=== PATIENT | female | born 1990 | race Caucasian/White ===

== ENCOUNTER → 2021-06-22 | Outpatient (CLI) | payer MEDICAID ==
[2021-06-22 11:05] LABS: HCT 40.3 % (37.2-46.3); HGB 13.1 g/dL (12.0-15.0); MCH 31.4 pg (27.0-32.0); MCHC 32.5 g/dL (32.0-37.0); MCV 96.6 fL (80.0-97.0); Mean Platelet Volume 10.8 fL (9.5-12.2); Platelet Count 235 X 10*3/uL (140-440); RBC 4.17 X 10*6/uL (4.10-5.20); RDW 11.9 % (11.5-14.5); WBC 6.52 X 10*3/uL (4.50-10.00)
[2021-06-22 22:13] LABS: African American GFR (CKD) 113.1 (60.0-200.0); Albumin 4.8 g/dL (3.80-4.90); Albumin/Globulin Ratio 1.92 (1.60-3.17); Anion Gap 11.5 mmol/L (4.00-12.00); BUN/Creat Ratio 18.75 Ratio (12.00-20.00); Calcium 9.4 mg/dL (8.7-10.3); Carbon Dioxide 25.5 mmol/L (21.6-31.8); Globulin 2.5 g/dL (1.6-3.3); Magnesium 1.8 mg/dL (1.5-2.4); Non-African American GFR(CKD) 97.6 (60.0-200.0); Potassium 4.1 mmol/L (3.5-5.5); Total Bilirubin 0.6 mg/dL (0.3-1.2); Total Protein 7.3 g/dL (6.2-8.2)
== END | disposition home or self-care (01) ==
LOC: LABWHC1 07:17
PROVIDERS: ATTEND Internal Medicine
DX: I47.1 Supraventricular tachycardia (principal); R55 Syncope and collapse
CPT/HCPCS: 36415; 80053; 82024; 82533; 83735; 84443; 85027

== ENCOUNTER → 2021-08-28 | Outpatient (CLI) | payer MEDICAID ==
--- NOTE | 2021-09-06 09:59 | HM ---
20 for a Holter monitor shows sinus rhythm and sinus tachycardia Occasional PACs Heart rates range from 41-115 beats a minute, average 69 beats a minute No sustained or nonsustained arrhythmias MTDD
== END | disposition home or self-care (01) ==
LOC: RADECHMAIN 08:17
PROVIDERS: ATTEND Internal Medicine Interventional Cardiology
DX: I49.1 Atrial premature depolarization (principal); R00.0 Tachycardia, unspecified
CPT/HCPCS: 93225; 93226

== ENCOUNTER 2022-03-06 23:24 | Emergency (ER) | payer MEDICAID ==
[2022-03-06 23:44] VITALS: TEMP 98
[2022-03-07 01:48] VITALS: RESP 18
[2022-03-07] MEDS ORDERED: SODIUM CHLORIDE 0.9% 1,000 ML IV STA (02:15)
[2022-03-07] MEDS ORDERED: ONDANSETRON 4 MG/2 ML VIAL IVP STA (02:15)
[2022-03-07 02:38] LABS: Basophils # (A) 0.1 k/uL (0-0.2); Basophils % (A) 1 %; Eosinophils # (A) 0.1 k/uL (0-0.7); Eosinophils % (A) 1 %; HCT 50.3 % (34.0-46.0); HGB 16.7 gm/dL (11.4-16.0); Lymphocytes # (A) 1.9 k/uL (1.0-4.8); Lymphocytes % (A) 20 %; MCH 30.6 pg (25.0-35.0); MCHC 33.2 g/dL (31.0-37.0); Mean Platelet Volume 7.9; Monocytes # (A) 0.6 k/uL (0-1.0); Monocytes % (A) 7 %; Neutrophils # (A) 6.7 k/uL (1.3-7.7); Neutrophils % (A) 70 %; Platelet Count 305 k/uL (150-450); RBC 5.46 m/uL (3.80-5.40); RDW 11.8 % (11.5-15.5); WBC 9.6 k/uL (3.8-10.6)
--- NOTE | 2022-03-07 02:42 | ED ---
Nausea/Vomiting/Diarrhea HPI - General Chief complaint: Nausea/Vomiting/Diarrhea Stated complaint: nausea, vomiting Time Seen by Provider: 03/07/22 01:58 Source: patient Mode of arrival: ambulatory Limitations: no limitations - History of Present Illness MD complaint: nausea, vomiting, diarrhea Onset/Timin -: days(s) Description of Vomiting: watery Description of Diarrhea: water Associated Abdominal Pain: Yes Location: RUQ Radiation: none Severity: mild Quality: dull Consistency: intermittent Improves with: none Worsens with: none Associated Symptoms: nausea/vomiting - Related Data Previous Rx's Medication Instructions Recorded Ondansetron Odt [Zofran ODT] 4 mg PO Q8HR PRN #10 tab 03/07/22 Allergies Allergy/AdvReac Type Severity Reaction Status Date / Time aspirin Allergy Intermediate Wheezing Verified 05/25/21 09:52 prochlorperazine edisylate Allergy Intermediate Unknown Verified 05/25/21 09:52 [From Compazine] prochlorperazine maleate Allergy Intermediate Unknown Verified 05/25/21 09:52 [From Compazine] paroxetine [From Paxil] Allergy Nausea & Verified 05/25/21 09:52 Vomiting Review of Systems ROS Statement: Those systems with pertinent positive or pertinent negative responses have been documented in the HPI. ROS Other: All systems not noted in ROS Statement are negative. Constitutional: Denies: fever, chills Respiratory: Denies: cough, dyspnea Cardiovascular: Denies: chest pain, palpitations, edema Gastrointestinal: Reports: abdominal pain, nausea, vomiting, diarrhea. Denies: constipation, hematemesis, melena, hematochezia Genitourinary: Denies: dysuria, frequency, hematuria, discharge Musculoskeletal: Denies: back pain Skin: Denies: rash Neurological: Denies: headache, weakness, numbness Past Medical History Past Medical History: Asthma Additional Past Medical History / Comment(s): asthma as a child, SVT History of Any Multi-Drug Resistant Organisms: None Reported Past Surgical History: Appendectomy Additional Past Surgical History / Comment(s): d & c Past Anesthesia/Blood Transfusion Reactions: Previous Problems w/ Anesthesia Additional Past Anesthesia/Blood Transfusion Reaction / Comment(s): slow to wake up Past Psychological History: No Psychological Hx Reported Smoking Status: Never smoker Past Alcohol Use History: Rare Past Drug Use History: None Reported - Past Family History Mother Family Medical History: No Reported History General Exam Limitations: no limitations General appearance: alert, in no apparent distress Head exam: Present: atraumatic, normocephalic Eye exam: Present: normal appearance. Absent: scleral icterus, conjunctival injection ENT exam: Present: normal oropharynx Neck exam: Present: normal inspection Respiratory exam: Present: normal lung sounds bilaterally. Absent: respiratory distress, wheezes, rales, rhonchi, stridor Cardiovascular Exam: Present: regular rate, normal rhythm, normal heart sounds. Absent: systolic murmur, diastolic murmur, rubs, gallop GI/Abdominal exam: Present: soft. Absent: distended, tenderness, guarding, rebound, rigid, mass, pulsatile mass, hernia Extremities exam: Present: normal inspection, normal capillary refill. Absent: pedal edema, calf tenderness Back exam: Present: normal inspection Neurological exam: Present: alert Skin exam: Present: warm, dry, intact, normal color. Absent: rash Course Vital Signs 03/06/22 03/07/22 03/07/22 23:40 01:45 02:35 Temperature 98 F Pulse Rate 102 H 89 83 Respiratory 16 18 18 Rate Blood Pressure 118/79 115/72 105/71 O2 Sat by Pulse 98 100 97 Oximetry Medical Decision Making - Lab Data Result diagrams: 03/07/22 02:25 03/07/22 02:25 Lab Results 03/07/22 03/07/22 03/07/22 Range/Units 02:25 02:25 02:37 WBC 9.6 (3.8-10.6) k/uL RBC 5.46 H (3.80-5.40) m/uL Hgb 16.7 H (11.4-16.0) gm/dL Hct 50.3 H (34.0-46.0) % MCV 92.0 (80.0-100.0) fL MCH 30.6 (25.0-35.0) pg MCHC 33.2 (31.0-37.0) g/dL RDW 11.8 (11.5-15.5) % Plt Count 305 (150-450) k/uL MPV 7.9 Neutrophils % 70 % Lymphocytes % 20 % Monocytes % 7 % Eosinophils % 1 % Basophils % 1 % Neutrophils # 6.7 (1.3-7.7) k/uL Lymphocytes # 1.9 (1.0-4.8) k/uL Monocytes # 0.6 (0-1.0) k/uL Eosinophils # 0.1 (0-0.7) k/uL Basophils # 0.1 (0-0.2) k/uL Sodium 137 (137-145) mmol/L Potassium 3.3 L (3.5-5.1) mmol/L Chloride 101 (98-107) mmol/L Carbon Dioxide 24 (22-30) mmol/L Anion Gap 12 mmol/L BUN 15 (7-17) mg/dL Creatinine 0.87 (0.52-1.04) mg/dL Est GFR (CKD-EPI)AfAm >90 (>60 ml/min/1.73 sqM) Est GFR (CKD-EPI)NonAf 89 (>60 ml/min/1.73 sqM) Glucose 109 H (74-99) mg/dL Calcium 10.1 (8.4-10.2) mg/dL Total Bilirubin 0.5 (0.2-1.3) mg/dL AST 42 H (14-36) U/L ALT 31 (4-34) U/L Alkaline Phosphatase 85 (38-126) U/L Total Protein 8.8 H (6.3-8.2) g/dL Albumin 5.2 H (3.5-5.0) g/dL Amylase 97 (30-110) U/L Lipase 129 (23-300) U/L Urine Color Light Red Urine Appearance Cloudy H (Clear) Urine pH 6.0 (5.0-8.0) Ur Specific [place] 1.023 (1.001-1.035) Urine Protein 2+ H (Negative) Urine Glucose (UA) Negative (Negative) Urine Ketones Trace H (Negative) Urine Blood Large H (Negative) Urine Nitrite Negative (Negative) Urine Bilirubin Negative (Negative) Urine Urobilinogen <2.0 (<2.0) mg/dL Ur Leukocyte Esterase Small H (Negative) Urine RBC >182 H (0-5) /hpf Urine WBC 22 H (0-5) /hpf Ur Squamous Epith Cells 7 H (0-4) /hpf Urine Bacteria Rare H (None) /hpf Hyaline Casts 18 H (0-2) /lpf Urine Mucus Many H (None) /hpf Disposition Clinical Impression: Gastroenteritis Disposition: HOME SELF-CARE Condition: Good Instructions (If sedation given, give patient instructions): Acute Nausea and Vomiting (ED) Prescriptions: Ondansetron Odt [Zofran ODT] 4 mg PO Q8HR PRN #10 tab PRN Reason: Nausea Is patient prescribed a controlled substance at d/c from ED?: No Referrals: Naresh Fontana MD [Primary Care Provider] - 1-2 days
[2022-03-07 02:47] LABS: ALT 31 U/L (4-34); AST 42 U/L (14-36); African American GFR (CKD) >90 (>60 ml/min/1.73 sqM); Albumin 5.2 g/dL (3.5-5.0); Alkaline Phosphatase 85 U/L (38-126); Amylase 97 U/L (30-110); Anion Gap 12 mmol/L; Blood Urea Nitrogen 15 mg/dL (7-17); Calcium 10.1 mg/dL (8.4-10.2); Carbon Dioxide 24 mmol/L (22-30); Chloride 101 mmol/L (98-107); Glucose 109 mg/dL (74-99); Lipase 129 U/L (23-300); Non-African American GFR(CKD) 89 (>60 ml/min/1.73 sqM); Potassium 3.3 mmol/L (3.5-5.1); Sodium 137 mmol/L (137-145); Total Bilirubin 0.5 mg/dL (0.2-1.3); Total Protein 8.8 g/dL (6.3-8.2)
[2022-03-07 03:36] LABS: Appearance,Urine Cloudy (Clear); Bacteria,Urine Rare /hpf; Bilirubin,Urine Negative (Negative); Blood,Urine Large (Negative); Color,Urine Light Red; Glucose,Urine (UA) Negative (Negative); Hyaline Casts,Urine 18 /lpf (0-2); Ketones,Urine Trace (Negative); Leukocyte Esterase,Urine Small (Negative); Mucus,Urine Many /hpf; Nitrite,Urine Negative (Negative); Protein,Urine 2+ (Negative); RBC,Urine >182 /hpf (0-5); Specific Gravity,Urine 1.023 (1.001-1.035); Squamous Epithelial Cell,Urine 7 /hpf (0-4); Urobilinogen,Urine <2.0 mg/dL (<2.0); WBC,Urine 22 /hpf (0-5)
[2022-03-07 05:14] VITALS: BP 111/62; PULSE 78
== END 2022-03-07 05:14 | disposition home or self-care (01) ==
LOC: EC 23:24
DX: K52.9 Noninfective gastroenteritis and colitis, unspecified (principal)
CPT/HCPCS: 36415; 80053; 82150; 83690; 85025; 81001; 99284; 96374; 96361; J2405

== ENCOUNTER 2022-03-11 12:55 | Inpatient (IN) | payer MEDICAID ==
[2022-03-11] MEDS ORDERED: KETOROLAC 15 MG/ML 1 ML VIAL IVP STA (13:38)
--- NOTE | 2022-03-11 13:45 | ED ---
General Adult HPI - General Chief complaint: Back Pain/Injury Stated complaint: Abd pain Time Seen by Provider: 03/11/22 13:18 Source: patient, RN notes reviewed Mode of arrival: wheelchair Limitations: no limitations - History of Present Illness Initial comments: Patient is a 31-year-old female presents to the emergency room with complaints of severe right flank pain radiating towards the right abdomen. She states that she was seen in the emergency room a few days ago with complaints of nausea and vomiting was diagnosed with gastroenteritis and discharged. At that time she had it urine specimen that showed possible UTI however she was on her menses consequently she was not treated for UTI at that time. Since discharge from the emergency room she has attempted to contact her primary care provider but due to the weekend she presented to the to urgent care with complaints of dysuria and frequency. Urgent care started her on Keflex. She states that initially her symptoms improved slightly in regards to her dysuria and frequency. Over the last 24-48 hours she has had an increase in flank pain. She denies any previous severe UTIs or history of nephrolithiasis. She states that she is occasionally nauseated from pain but denies any vomiting or other GI symptoms. She is complaining of occasional dysuria and frequency but denies any hematuria. She has past medical history significant for asthma. She has a history of an appendectomy from appendicitis many years ago. She denies any other complaints or concerns this time. - Related Data Previous Rx's Medication Instructions Recorded Ondansetron Odt [Zofran ODT] 4 mg PO Q8HR PRN #10 tab 03/07/22 Allergies Allergy/AdvReac Type Severity Reaction Status Date / Time aspirin Allergy Intermediate Wheezing Verified 03/11/22 13:06 prochlorperazine edisylate Allergy Intermediate Unknown Verified 03/11/22 13:06 [From Compazine] prochlorperazine maleate Allergy Intermediate Unknown Verified 03/11/22 13:06 [From Compazine] paroxetine [From Paxil] Allergy Nausea & Verified 03/11/22 13:06 Vomiting Review of Systems ROS Statement: Those systems with pertinent positive or pertinent negative responses have been documented in the HPI. ROS Other: All systems not noted in ROS Statement are negative. Past Medical History Past Medical History: Asthma Additional Past Medical History / Comment(s): asthma as a child, SVT History of Any Multi-Drug Resistant Organisms: None Reported Past Surgical History: Appendectomy Additional Past Surgical History / Comment(s): d & c Past Anesthesia/Blood Transfusion Reactions: Previous Problems w/ Anesthesia Additional Past Anesthesia/Blood Transfusion Reaction / Comment(s): slow to wake up Past Psychological History: No Psychological Hx Reported Smoking Status: Never smoker Past Alcohol Use History: Rare Past Drug Use History: None Reported - Past Family History Mother Family Medical History: No Reported History General Exam Limitations: no limitations General appearance: alert, in no apparent distress, other (in pain) Head exam: Present: atraumatic, normocephalic, normal inspection Eye exam: Present: normal appearance, PERRL, EOMI. Absent: scleral icterus, conjunctival injection, periorbital swelling Respiratory exam: Present: normal lung sounds bilaterally. Absent: respiratory distress, wheezes, rales, rhonchi, stridor Cardiovascular Exam: Present: regular rate, normal rhythm, normal heart sounds. Absent: systolic murmur, diastolic murmur, rubs, gallop, clicks GI/Abdominal exam: Present: soft, normal bowel sounds. Absent: distended, tenderness, guarding, rebound, rigid Extremities exam: Present: normal inspection. Absent: pedal edema, joint swelling Back exam: Present: CVA tenderness (R). Absent: muscle spasm, paraspinal tenderness, vertebral tenderness Neurological exam: Present: alert, oriented X3, CN II-XII intact Psychiatric exam: Present: normal affect, normal mood Skin exam: Present: warm, dry, intact, normal color. Absent: rash Course Vital Signs 03/11/22 03/11/22 13:07 14:32 Temperature 97.8 F Pulse Rate 75 69 Respiratory 16 16 Rate Blood Pressure 150/79 100/48 O2 Sat by Pulse 100 98 Oximetry Medical Decision Making - Medical Decision Making CT abdomen and pelvis without contrast showed obstructing calculi at the right ureterovesical junction with hydronephrosis and hydroureter. Bilateral renal calculi. Pain improved with IV Toradol. IV fluids started. Case discussed with urology and medicine. Urology doubts pyelonephrosis and need for intervention however recommend admission for intractable pain if necessary. Recommend admission to medicine with urology consult. Urinary specimen with significant abnormalities noted. Case discussed with Dr. Flanagan who is covering for Dr. Canela who agrees to admission for intractable pain. Requests IV antibiotics for possible UTI; pyelonephritis unlikely. Will start on ceftriaxone. Will admit to medicine and continue IV fluids along with Toradol for pain. - Lab Data Result diagrams: 03/11/22 13:48 03/11/22 13:48 Lab Results 03/11/22 03/11/22 03/11/22 Range/Units 13:48 13:48 14:32 WBC 12.1 H (3.8-10.6) k/uL RBC 4.16 (3.80-5.40) m/uL Hgb 13.0 D (11.4-16.0) gm/dL Hct 39.1 (34.0-46.0) % MCV 93.8 (80.0-100.0) fL MCH 31.3 (25.0-35.0) pg MCHC 33.4 (31.0-37.0) g/dL RDW 12.5 (11.5-15.5) % Plt Count 363 (150-450) k/uL MPV 9.5 Neutrophils % 66 % Lymphocytes % 26 % Monocytes % 4 % Eosinophils % 1 % Basophils % 1 % Neutrophils # 8.0 H (1.3-7.7) k/uL Lymphocytes # 3.1 (1.0-4.8) k/uL Monocytes # 0.5 (0-1.0) k/uL Eosinophils # 0.1 (0-0.7) k/uL Basophils # 0.1 (0-0.2) k/uL Sodium 138 (137-145) mmol/L Potassium 3.9 (3.5-5.1) mmol/L Chloride 104 (98-107) mmol/L Carbon Dioxide 23 (22-30) mmol/L Anion Gap 11 mmol/L BUN 14 (7-17) mg/dL Creatinine 0.91 (0.52-1.04) mg/dL Est GFR (CKD-EPI)AfAm >90 (>60 ml/min/1.73 sqM) Est GFR (CKD-EPI)NonAf 84 (>60 ml/min/1.73 sqM) Glucose 105 H (74-99) mg/dL Calcium 9.4 (8.4-10.2) mg/dL Total Bilirubin 0.4 (0.2-1.3) mg/dL AST 38 H (14-36) U/L ALT 31 (4-34) U/L Alkaline Phosphatase 79 (38-126) U/L Total Protein 7.1 (6.3-8.2) g/dL Albumin 4.5 (3.5-5.0) g/dL Urine Color Yellow Urine Appearance Clear (Clear) Urine pH 6.0 (5.0-8.0) Ur Specific [place] 1.014 (1.001-1.035) Urine Protein Trace H (Negative) Urine Glucose (UA) Negative (Negative) Urine Ketones 1+ H (Negative) Urine Blood Large H (Negative) Urine Nitrite Negative (Negative) Urine Bilirubin Negative (Negative) Urine Urobilinogen <2.0 (<2.0) mg/dL Ur Leukocyte Esterase Small H (Negative) Urine RBC >182 H (0-5) /hpf Urine WBC 11 H (0-5) /hpf Ur Squamous Epith Cells 2 (0-4) /hpf Calcium Oxalate Crystal Rare H (None) /hpf Urine Bacteria Rare H (None) /hpf Urine Mucus Few H (None) /hpf Urine HCG, Qual (Not Detectd) 03/11/22 Range/Units 14:32 WBC (3.8-10.6) k/uL RBC (3.80-5.40) m/uL Hgb (11.4-16.0) gm/dL Hct (34.0-46.0) % MCV (80.0-100.0) fL MCH (25.0-35.0) pg MCHC (31.0-37.0) g/dL RDW (11.5-15.5) % Plt Count (150-450) k/uL MPV Neutrophils % % Lymphocytes % % Monocytes % % Eosinophils % % Basophils % % Neutrophils # (1.3-7.7) k/uL Lymphocytes # (1.0-4.8) k/uL Monocytes # (0-1.0) k/uL Eosinophils # (0-0.7) k/uL Basophils # (0-0.2) k/uL Sodium (137-145) mmol/L Potassium (3.5-5.1) mmol/L Chloride (98-107) mmol/L Carbon Dioxide (22-30) mmol/L Anion Gap mmol/L BUN (7-17) mg/dL Creatinine (0.52-1.04) mg/dL Est GFR (CKD-EPI)AfAm (>60 ml/min/1.73 sqM) Est GFR (CKD-EPI)NonAf (>60 ml/min/1.73 sqM) Glucose (74-99) mg/dL Calcium (8.4-10.2) mg/dL Total Bilirubin (0.2-1.3) mg/dL AST (14-36) U/L ALT (4-34) U/L Alkaline Phosphatase (38-126) U/L Total Protein (6.3-8.2) g/dL Albumin (3.5-5.0) g/dL Urine Color Urine Appearance (Clear) Urine pH (5.0-8.0) Ur Specific [place] (1.001-1.035) Urine Protein (Negative) Urine Glucose (UA) (Negative) Urine Ketones (Negative) Urine Blood (Negative) Urine Nitrite (Negative) Urine Bilirubin (Negative) Urine Urobilinogen (<2.0) mg/dL Ur Leukocyte Esterase (Negative) Urine RBC (0-5) /hpf Urine WBC (0-5) /hpf Ur Squamous Epith Cells (0-4) /hpf Calcium Oxalate Crystal (None) /hpf Urine Bacteria (None) /hpf Urine Mucus (None) /hpf Urine HCG, Qual Not Detected (Not Detectd) - Radiology Data Radiology results: report reviewed, image reviewed CT abdomen and pelvis without contrast impression obstructing calculi at the right ureterovesical junction with hydronephrosis and hydro-ureter. Bilateral renal calculi. Disposition Clinical Impression: Nephrolithiasis, Intractable pain Disposition: [facility] Condition: Stable Is patient prescribed a controlled substance at d/c from ED?: No Referrals: Naresh Fontana MD [Primary Care Provider] - 1-2 days Time of Disposition: 15:04 Decision to Admit Reason: Admit from EC
[2022-03-11 14:05] LABS: ALT 31 U/L (4-34); AST 38 U/L (14-36); African American GFR (CKD) >90 (>60 ml/min/1.73 sqM); Albumin 4.5 g/dL (3.5-5.0); Alkaline Phosphatase 79 U/L (38-126); Anion Gap 11 mmol/L; Blood Urea Nitrogen 14 mg/dL (7-17); Calcium 9.4 mg/dL (8.4-10.2); Carbon Dioxide 23 mmol/L (22-30); Chloride 104 mmol/L (98-107); Glucose 105 mg/dL (74-99); Non-African American GFR(CKD) 84 (>60 ml/min/1.73 sqM); Potassium 3.9 mmol/L (3.5-5.1); Sodium 138 mmol/L (137-145); Total Bilirubin 0.4 mg/dL (0.2-1.3); Total Protein 7.1 g/dL (6.3-8.2)
[2022-03-11] MEDS ORDERED: SODIUM CHLORIDE 0.9% 1,000 ML IV STA (14:15)
[2022-03-11 14:37] LABS: Basophils # (A) 0.1 k/uL (0-0.2); Basophils % (A) 1 %; Eosinophils # (A) 0.1 k/uL (0-0.7); Eosinophils % (A) 1 %; HCT 39.1 % (34.0-46.0); Lymphocytes # (A) 3.1 k/uL (1.0-4.8); Lymphocytes % (A) 26 %; MCH 31.3 pg (25.0-35.0); MCHC 33.4 g/dL (31.0-37.0); MCV 93.8 fL (80.0-100.0); Mean Platelet Volume 9.5; Monocytes # (A) 0.5 k/uL (0-1.0); Monocytes % (A) 4 %; Neutrophils % (A) 66 %; Platelet Count 363 k/uL (150-450); RBC 4.16 m/uL (3.80-5.40); RDW 12.5 % (11.5-15.5); WBC 12.1 k/uL (3.8-10.6)
--- NOTE | 2022-03-11 14:40 | CT ---
EXAMINATION TYPE: CT abdomen pelvis wo con DATE OF EXAM: 03/11/2022 COMPARISON: None HISTORY: Abdominal pain CT DLP: mGycm Automated exposure control for dose reduction was used. Images obtained from the diaphragm to the floor the pelvis with no contrast. The lung bases are clear. No pleural effusion. Heart size is normal. No pericardial effusion. Liver spleen and stomach pancreas and gallbladder appear intact. The bile ducts are not dilated. There is no adrenal mass. There are bilateral multiple renal calculi. These measure up to 4 mm. There is right side hydronephrosis and hydroureter. There is 4 mm obstructing calculus at the right ureter ovesical junction. There is no inguinal hernia. No free fluid in the pelvis. There is no retroperiton eal adenopathy. Uterus is anteverted. No pelvic mass. The lumbar vertebrae have normal spacing and alignment. Posteri or elements are intact. No compression fracture. The bony pelvis is intact. Sacroiliac joints are int act. There are surgical clips in the right lower quadrant. Appendix not seen. IMPRESSION: Obstructing calculus at the right ureterovesical junction with hydronephrosis and hydroureter. Bilate ral renal calculi.
[2022-03-11 14:56] LABS: Appearance,Urine Clear (Clear); Bacteria,Urine Rare /hpf; Bilirubin,Urine Negative (Negative); Blood,Urine Large (Negative); Calcium Oxalate Crystals,Urine Rare /hpf; Color,Urine Yellow; Glucose,Urine (UA) Negative (Negative); Ketones,Urine 1+ (Negative); Leukocyte Esterase,Urine Small (Negative); Mucus,Urine Few /hpf; Nitrite,Urine Negative (Negative); Protein,Urine Trace (Negative); RBC,Urine >182 /hpf (0-5); Specific Gravity,Urine 1.014 (1.001-1.035); Squamous Epithelial Cell,Urine 2 /hpf (0-4); Urobilinogen,Urine <2.0 mg/dL (<2.0); WBC,Urine 11 /hpf (0-5)
[2022-03-11] MEDS ORDERED: ACETAMINOPHEN TAB 325 MG TAB PO PRN (15:09)
[2022-03-11] MEDS ORDERED: NALOXONE 0.4 MG/ML 1 ML VIAL IV PRN (15:09)
[2022-03-11] MEDS: ONDANSETRON 4 MG/2 ML VIAL IVP PRN (17:01)
[2022-03-11] MEDS: IBUPROFEN 400 MG TAB PO PRN ×2 (17:01→23:11)
[2022-03-11] MEDS: SODIUM CHLORIDE 0.9% 1,000 ML IV SCH ×2 (17:03→23:01)
[2022-03-11] MEDS ORDERED: HYDROmorphone 0.5 MG/0.5 ML SYRINGE IVP PRN (18:53)
--- NOTE | 2022-03-11 20:30 | P.HPIM ---
History of Present Illness H&P Date: 03/11/22 Chief Complaint: RT flank pain Patient is a 31-year-old female with a known history of asthma, SVT and no prior history of renal stones presents to ER with the complaints of right lower back pain. Patient states that she had severe sharp pain noted when she was at home currently and radiating down to the groin. Patient was seen in the emergency room few days ago with complaints of nausea vomiting and was diagnosed with gastroenteritis. Patient was sent home. At time urinalysis showed possible UTI. Mainly red blood cells. Patient was on her menses at the time and consequently patient was discharged home. Patient went to urgent care with similar complaints of dysuria and frequency. Patient was started on Keflex which she took 4 doses so far. Initially her symptoms improved but over the past 24 hours she has been having right flank discomfort and pain. Denies any vomiting currently. Slightly nauseated. No headache or dizziness. No fever no chills. No chest pain or shortness of breath. CT of the abdomen pelvis showed obstructing calculus at the right ureterovesical junction with hydronephrosis and hydroureter. Bilateral renal calculi. Laboratory data showed WBC 12.1 hemoglobin 13.0 and platelets 363 AST 38 ALT 31 alk phos 79. Urinalysis showed trace protein 1+ ketones and large blood and small leukocyte esterase elevated RBCs and WBCs. Review of Systems Constitutional: Patient denies any fever or chills . Generalized weakness. Abdomen: Patient denied any nausea or vomiting or abd. pain. Patient does complain of e right flank pain Cardiovascular: Patient denies any chest pain or short of breath no palpitation s. Respiratory: patient denied any cough is from production. No shortness of breath Neurologic: Patient denied any numbness or tingling headache. Musculoskeletal: Patient denies any complaints of joint swelling or deformity. Skin: Negative Psychiatric: Negative Endocrine: No heat or cold intolerance. No recent weight gain. Genitourinary: dysuria . no hematuria. All other 14 point ROS negative except the above Past Medical History Past Medical History: Asthma Additional Past Medical History / Comment(s): asthma as a child, SVT History of Any Multi-Drug Resistant Organisms: None Reported Past Surgical History: Appendectomy Additional Past Surgical History / Comment(s): d & c Past Anesthesia/Blood Transfusion Reactions: Previous Problems w/ Anesthesia Additional Past Anesthesia/Blood Transfusion Reaction / Comment(s): slow to wake up Past Psychological History: No Psychological Hx Reported Smoking Status: Never smoker Past Alcohol Use History: Rare Past Drug Use History: None Reported - Past Family History Mother Family Medical History: No Reported History Medications and Allergies Home Medications Medication Instructions Recorded Confirmed Type Ondansetron Odt [Zofran ODT] 4 mg PO Q8HR PRN #10 tab 03/07/22 Rx Allergies Allergy/AdvReac Type Severity Reaction Status Date / Time aspirin Allergy Intermediate Wheezing Verified 03/11/22 13:06 prochlorperazine edisylate Allergy Intermediate Unknown Verified 03/11/22 13:06 [From Compazine] prochlorperazine maleate Allergy Intermediate Unknown Verified 03/11/22 13:06 [From Compazine] paroxetine [From Paxil] Allergy Nausea & Verified 03/11/22 13:06 Vomiting Physical Exam Vitals: Vital Signs Temp Pulse Pulse Resp BP BP Pulse Ox 03/11/22 16:52 99.0 F 60 16 106/68 100 03/11/22 15:58 98.0 F 71 16 111/57 98 03/11/22 14:32 69 16 100/48 98 03/11/22 13:07 97.8 F 75 16 150/79 100 Intake and Output 03/11/22 03/11/22 03/11/22 06:59 14:59 22:59 Intake Total 540 Balance 540 Intake: Intake, IV Titration 300 Amount cefTRIAXone 1 gm In 300 Sodium Chloride 0.9% 50 ml @ 100 mls/hr IVPB ONCE STA Rx#:[id number] Oral 240 Other: # Voids 3 Weight 62.596 kg 62.596 kg PHYSICAL EXAMINATION: Patient is lying in the bed comfortably, no acute distress, awake alert and oriented.. HEENT: Normocephalic. Neck is supple. Pupils reactive. Nostrils clear. Oral cavity is moist. Neck reveals no JVD, carotid bruits, or thyromegaly. CHEST EXAMINATION: Trachea is central. Symmetrical expansion. Lung parikh clear to auscultation and percussion. CARDIAC: Normal S1, S2 with no gallops. No murmurs ABDOMEN: Soft. Bowel sounds present. Nontender. No organomegaly. No abdominal bruits. Extremities: reveal no edema. No clubbing or cyanosis Neurologically awake, alert, oriented x3 with well-coordinated movements. No focal deficits noted Skin: No rash or skin lesions. Psychiatric: Coperative. Nonsuicidal, anxious. Musculoskeletal: No joint swelling or deformity. Normal range of motion. Results CBC & Chem 7: 03/11/22 13:48 03/11/22 13:48 Labs: Abnormal Lab Results - Last 24 Hours (Table) 03/11/22 03/11/22 03/11/22 Range/Units 13:48 13:48 14:32 WBC 12.1 H (3.8-10.6) k/uL Neutrophils # 8.0 H (1.3-7.7) k/uL Glucose 105 H (74-99) mg/dL AST 38 H (14-36) U/L Urine Protein Trace H (Negative) Urine Ketones 1+ H (Negative) Urine Blood Large H (Negative) Ur Leukocyte Esterase Small H (Negative) Urine RBC >182 H (0-5) /hpf Urine WBC 11 H (0-5) /hpf Calcium Oxalate Crystal Rare H (None) /hpf Urine Bacteria Rare H (None) /hpf Urine Mucus Few H (None) /hpf Thrombosis Risk Factor Assmnt - DVT/VTE Prophylaxis DVT/VTE Prophylaxis: Pharmacologic Prophylaxis ordered - Choose All That Apply Any of the Below Risk Factors Present?: No Assessment and Plan Assessment: Right flank tenderness due to obstructing calculus at the right ureterovesicular junction. Hydroureters and hydro nephrosis secondary more Bilateral renal calculi Possible urinary tract infection Asthma not in exacerbation DVT prophylaxis with heparin subcu Plan: Patient will be continued on IV hydration and pain management Toradol and Dilaudid. Continue with antibiotics in the form of ceftriaxone and follow-up urine culture report. Urology was consulted. Continue to follow closely. Time with Patient: Greater than 30
[2022-03-11] MEDS: HEPARIN SODIUM,PORCINE/PF 5,000 UNIT/0.5 ML SYRINGE SQ SCH (23:11)
[2022-03-12] MEDS: HEPARIN SODIUM,PORCINE/PF 5,000 UNIT/0.5 ML SYRINGE SQ SCH ×2 (08:35→16:13)
[2022-03-12] MEDS: KETOROLAC 15 MG/ML 1 ML VIAL IVP PRN ×3 (08:41→20:57)
[2022-03-12 08:59] LABS: Basophils # (A) 0.04 X 10*3/uL (0.00-0.10); Basophils % (A) 0.6 %; Eosinophils # (A) 0.14 X 10*3/uL (0.04-0.35); Eosinophils % (A) 2.1 %; HCT 35.3 % (37.2-46.3); HGB 11.4 g/dL (12.0-15.0); Immature Grans, Automated 0.4 %; Lymphocytes # (A) 2.59 X 10*3/uL (0.90-5.00); Lymphocytes % (A) 38.4 %; MCH 30.5 pg (27.0-32.0); MCHC 32.3 g/dL (32.0-37.0); MCV 94.4 fL (80.0-97.0); Mean Platelet Volume 11.2 fL (9.5-12.2); Monocytes # (A) 0.58 X 10*3/uL (0.20-1.00); Monocytes % (A) 8.6 %; NRBC Per 100 WBC 0 /100 WBCS (0.0-0.0); Neutrophils # (A) 3.37 X 10*3/uL (1.80-7.70); Neutrophils % (A) 49.9 %; Platelet Count 263 X 10*3/uL (140-440); RBC 3.74 X 10*6/uL (4.10-5.20); RDW 12.1 % (11.5-14.5); WBC 6.75 X 10*3/uL (4.50-10.00)
[2022-03-12 09:07] LABS: African American GFR (CKD) 132.9 (60.0-200.0); Anion Gap 7.7 mmol/L (10.00-18.00); BUN/Creat Ratio 14.57 Ratio (12.00-20.00); Blood Urea Nitrogen 10.2 mg/dL (9.0-27.0); Calcium 8.9 mg/dL (8.7-10.3); Carbon Dioxide 28.3 mmol/L (20.0-27.5); Non-African American GFR(CKD) 114.6 (60.0-200.0); Potassium 3.9 mmol/L (3.5-5.5)
[2022-03-12] MEDS: TAMSULOSIN 0.4 MG CAP.ER.24H PO SCH (09:52)
--- NOTE | 2022-03-12 09:53 | P.GSCN ---
History of Present Illness Consult date: 03/12/22 Reason for Consult: Right ureteral stone History of present illness: This is a 31-year-old female admitted to the hospital with a 4 mm right-sided distal stone. Patient was admitted to intractable pain. She underwent a CT on presentation that showed evidence of a 4 mm right-sided distal stone with bilateral nonobstructing stones. No previous history of kidney stones or family history kidney stones. She indicated the pain is in the right flank and radiating to the right lower quadrant, associated with nausea with no vomiting. Denies any fevers or chills or dysuria. This morning on evaluation she indicated her pain has improved, she has not seen the stone pass Review of Systems - Constitutional Denies fever, Denies weight loss - Cardiovascular Denies chest pain, Denies shortness of breath - Respiratory Denies cough, Denies 7 - Gastrointestinal Reports abdominal pain - Genitourinary Genitourinary: Reports flank pain, Denies dysuria, Denies hematuria - Neurological Denies headaches, Denies syncope Past Medical History Past Medical History: Asthma Additional Past Medical History / Comment(s): asthma as a child, SVT History of Any Multi-Drug Resistant Organisms: None Reported Past Surgical History: Appendectomy Additional Past Surgical History / Comment(s): d & c Past Anesthesia/Blood Transfusion Reactions: Previous Problems w/ Anesthesia Additional Past Anesthesia/Blood Transfusion Reaction / Comm: slow to wake up Past Psychological History: No Psychological Hx Reported Smoking Status: Never smoker Past Alcohol Use History: Rare Past Drug Use History: None Reported - Past Family History Mother Family Medical History: No Reported History Medications and Allergies Home Medications Medication Instructions Recorded Confirmed Type Ondansetron Odt [Zofran ODT] 4 mg PO Q8HR PRN #10 tab 03/07/22 03/12/22 Rx Cephalexin [Keflex] 500 mg PO QID 03/12/22 03/12/22 History Metoprolol Tartrate [Lopressor] 6.25 - 12.5 mg PO DAILY 03/12/22 03/12/22 History Metoprolol Tartrate [Lopressor] 12.5 mg PO HS PRN 03/12/22 03/12/22 History Allergies Allergy/AdvReac Type Severity Reaction Status Date / Time aspirin Allergy Intermediate Wheezing Verified 03/12/22 08:04 prochlorperazine edisylate Allergy Intermediate Unknown Verified 03/12/22 08:04 [From Compazine] prochlorperazine maleate Allergy Intermediate Unknown Verified 03/12/22 08:04 [From Compazine] paroxetine [From Paxil] Allergy Nausea & Verified 03/12/22 08:04 Vomiting Surgical - Exam Vital Signs Temp Pulse Resp BP Pulse Ox 97.8 F 75 16 150/79 100 03/11/22 13:07 03/11/22 13:07 03/11/22 13:07 03/11/22 13:07 03/11/22 13:07 - General no distress, moderate pain - Eyes normal ocular movement, no pale - ENT normal nares, normal mucosa - Respiratory normal expansion, normal respiratory effort - Abdomen Abdomen: soft, non tender - Psychiatric oriented to time, oriented to person, oriented to place Results - Labs 03/12/22 05:48 03/12/22 05:48 Abnormal Lab Results - Last 24 Hours (Table) 03/11/22 03/11/22 03/11/22 Range/Units 13:48 13:48 14:32 WBC 12.1 H (3.8-10.6) k/uL RBC (4.10-5.20) X 10*6/uL Hgb (12.0-15.0) g/dL Hct (37.2-46.3) % Neutrophils # 8.0 H (1.3-7.7) k/uL Carbon Dioxide (20.0-27.5) mmol/L Anion Gap (10.00-18.00) mmol/L Glucose 105 H (74-99) mg/dL AST 38 H (14-36) U/L Urine Protein Trace H (Negative) Urine Ketones 1+ H (Negative) Urine Blood Large H (Negative) Ur Leukocyte Esterase Small H (Negative) Urine RBC >182 H (0-5) /hpf Urine WBC 11 H (0-5) /hpf Calcium Oxalate Crystal Rare H (None) /hpf Urine Bacteria Rare H (None) /hpf Urine Mucus Few H (None) /hpf 03/12/22 03/12/22 Range/Units 05:48 05:48 WBC (3.8-10.6) k/uL RBC 3.74 L (4.10-5.20) X 10*6/uL Hgb 11.4 L (12.0-15.0) g/dL Hct 35.3 L (37.2-46.3) % Neutrophils # (1.3-7.7) k/uL Carbon Dioxide 28.3 H (20.0-27.5) mmol/L Anion Gap 7.70 L (10.00-18.00) mmol/L Glucose (74-99) mg/dL AST (14-36) U/L Urine Protein (Negative) Urine Ketones (Negative) Urine Blood (Negative) Ur Leukocyte Esterase (Negative) Urine RBC (0-5) /hpf Urine WBC (0-5) /hpf Calcium Oxalate Crystal (None) /hpf Urine Bacteria (None) /hpf Urine Mucus (None) /hpf Microbiology - Last 24 Hours (Table) 03/11/22 14:32 Urine Culture - Preliminary Urine,Voided Diabetes panel 03/11/22 03/12/22 Range/Units 13:48 05:48 Sodium 138 144 (137-145) mmol/L Potassium 3.9 3.9 (3.5-5.1) mmol/L Chloride 104 108 (98-107) mmol/L Carbon Dioxide 23 28.3 H (22-30) mmol/L BUN 14 10.2 (7-17) mg/dL Creatinine 0.91 0.7 (0.52-1.04) mg/dL Glucose 105 H 90 (74-99) mg/dL Calcium 9.4 8.9 (8.4-10.2) mg/dL AST 38 H (14-36) U/L ALT 31 (4-34) U/L Alkaline Phosphatase 79 (38-126) U/L Total Protein 7.1 (6.3-8.2) g/dL Albumin 4.5 (3.5-5.0) g/dL Calcium panel 03/11/22 03/12/22 Range/Units 13:48 05:48 Calcium 9.4 8.9 (8.4-10.2) mg/dL Albumin 4.5 (3.5-5.0) g/dL Pituitary panel 03/11/22 03/12/22 Range/Units 13:48 05:48 Sodium 138 144 (137-145) mmol/L Potassium 3.9 3.9 (3.5-5.1) mmol/L Chloride 104 108 (98-107) mmol/L Carbon Dioxide 23 28.3 H (22-30) mmol/L BUN 14 10.2 (7-17) mg/dL Creatinine 0.91 0.7 (0.52-1.04) mg/dL Glucose 105 H 90 (74-99) mg/dL Calcium 9.4 8.9 (8.4-10.2) mg/dL Adrenal panel 03/11/22 03/12/22 Range/Units 13:48 05:48 Sodium 138 144 (137-145) mmol/L Potassium 3.9 3.9 (3.5-5.1) mmol/L Chloride 104 108 (98-107) mmol/L Carbon Dioxide 23 28.3 H (22-30) mmol/L BUN 14 10.2 (7-17) mg/dL Creatinine 0.91 0.7 (0.52-1.04) mg/dL Glucose 105 H 90 (74-99) mg/dL Calcium 9.4 8.9 (8.4-10.2) mg/dL Total Bilirubin 0.4 (0.2-1.3) mg/dL AST 38 H (14-36) U/L ALT 31 (4-34) U/L Alkaline Phosphatase 79 (38-126) U/L Total Protein 7.1 (6.3-8.2) g/dL Albumin 4.5 (3.5-5.0) g/dL Assessment and Plan Assessment: 31-year-old female admitted to the hospital with a 4 mm right-sided distal stone secondary to intractable pain. Pain improved this morning. At this point we'll observe her overnight, if pain recurs then we'll plan on proceeding with a right-sided ureteroscopy with holmium laser lithotripsy tomorrow, IF pain is manageable resolves then we'll plan on discharging home tomorrow. -we'll start her on Flomax, strain her urine. -Continue ceftriaxone -Nothing by mouth past midnight
[2022-03-12] MEDS: SODIUM CHLORIDE 0.9% 1,000 ML IV SCH (10:56)
[2022-03-12] MEDS ORDERED: METOPROLOL TARTRATE 12.5 MG TAB PO PRN (19:02)
[2022-03-13] MEDS: HEPARIN SODIUM,PORCINE/PF 5,000 UNIT/0.5 ML SYRINGE SQ SCH ×4 (00:19→23:46)
[2022-03-13] MEDS: KETOROLAC 15 MG/ML 1 ML VIAL IVP PRN ×4 (05:12→23:41)
[2022-03-13] MEDS: ONDANSETRON 4 MG/2 ML VIAL IVP PRN (05:12)
--- NOTE | 2022-03-13 06:20 | P.PN ---
Subjective Progress Note Date: 03/12/22 Patient is a 31-year-old female with a known history of asthma, SVT and no prior history of renal stones presents to ER with the complaints of right lower back pain. Patient states that she had severe sharp pain noted when she was at home currently and radiating down to the groin. Patient was seen in the emergency room few days ago with complaints of nausea vomiting and was diagnosed with gastroenteritis. Patient was sent home. At time urinalysis showed possible UTI. Mainly red blood cells. Patient was on her menses at the time and consequently patient was discharged home. Patient went to urgent care with similar complaints of dysuria and frequency. Patient was started on Keflex which she took 4 doses so far. Initially her symptoms improved but over the past 24 hours she has been having right flank discomfort and pain. Denies any vomiting currently. Slightly nauseated. No headache or dizziness. No fever no chills. No chest pain or shortness of breath. CT of the abdomen pelvis showed obstructing calculus at the right ureterovesical junction with hydronephrosis and hydroureter. Bilateral renal calculi. Laboratory data showed WBC 12.1 hemoglobin 13.0 and platelets 363 AST 38 ALT 31 alk phos 79. Urinalysis showed trace protein 1+ ketones and large blood and small leukocyte e sterase elevated RBCs and WBCs. 03/12/2022 Patient is seen in follow-up this morning continues with some right flank pain and continues to feel a decreased urine output although is urinating. Patient is noticing some blood in the urine and urology following the patient. Patient will be nothing by mouth at midnight and plan is for possible lithotripsy in the a.m. Patient is also maintained on IV antibiotics and will continue. Patient denies chest pain or shortness of breath. Patient currently afebrile. Patient tolerating diet with no reports of nausea or vomiting noted. Patient reports her pain is currently controlled and will continue current regimen. Review of systems: Constitutional: No reports of fatigue, fever, or chills Cardiovascular: No reports of chest pain or palpitations Respiratory: No reports of shortness of breath or cough GI: No reports of nausea, vomiting, or diarrhea : No reports of dysuria or retention Neurovascular: No reports of weakness or numbness All medications have been reviewed Active Medications Acetaminophen (Acetaminophen Tab 325 Mg Tab) 650 mg PO Q6HR PRN PRN Reason: Mild Pain or Fever > 100.5 Heparin Sodium (Porcine) (Heparin Sodium,Porcine/Pf 5,000 Unit/0.5 Ml Syringe) 5,000 unit SQ Q8HR [facility] Last Admin: 03/12/22 08:35 Dose: Not Given Hydromorphone HCl (Hydromorphone 0.5 Mg/0.5 Ml Syringe) 0.5 mg IVP Q6HR PRN PRN Reason: Pain Sodium Chloride (Saline 0.9%) 1,000 mls @ 75 mls/hr IV .[id number] [facility] Last Admin: 03/12/22 10:56 Dose: 75 mls/hr Ceftriaxone Sodium 1 gm/ (Sodium Chloride) 50 mls @ 100 mls/hr IVPB Q24HR [facility]; Protocol Last Admin: 03/12/22 08:40 Dose: 100 mls/hr Ibuprofen (Ibuprofen 400 Mg Tab) 400 mg PO Q6HR PRN PRN Reason: Mild Pain or Fever > 100.5 Last Admin: 03/11/22 23:11 Dose: 400 mg Ketorolac Tromethamine (Ketorolac 15 Mg/Ml 1 Ml Vial) 15 mg IVP Q6HR PRN PRN Reason: Moderate Pain Stop: 03/14/22 15:10 Last Admin: 03/12/22 14:24 Dose: 15 mg Naloxone HCl (Naloxone 0.4 Mg/Ml 1 Ml Vial) 0.2 mg IV Q2M PRN PRN Reason: Opioid Reversal Ondansetron HCl (Ondansetron 4 Mg/2 Ml Vial) 4 mg IVP Q8HR PRN PRN Reason: Nausea And Vomiting Last Admin: 03/11/22 17:01 Dose: 4 mg Tamsulosin HCl (Tamsulosin 0.4 Mg Cap.Er.24h) 0.4 mg PO PC-BRKFST [facility] Last Admin: 03/12/22 09:52 Dose: 0.4 mg Physical exam: Patient is lying in the bed comfortably, no acute distress, awake alert and oriented.. HEENT: Normocephalic. Neck is supple. Pupils reactive. Nostrils clear. Oral cavity is moist. Neck reveals no JVD, carotid bruits, or thyromegaly. CHEST EXAMINATION: Trachea is central. Symmetrical expansion. Lung parikh clear to auscultation and percussion. CARDIAC: Normal S1, S2 with no gallops. No murmurs ABDOMEN: Soft. Bowel sounds present. Nontender. No organomegaly. No abdominal bruits. Extremities: reveal no edema. No clubbing or cyanosis Neurologically awake, alert, oriented x3 with well-coordinated movements. No focal deficits noted Skin: No rash or skin lesions. Psychiatric: Coperative. Nonsuicidal, anxious. Musculoskeletal: No joint swelling or deformity. Normal range of motion. Assessment: Right flank tenderness due to obstructing calculus at the right ureterovesicular junction. Hydroureters and hydronephrosis secondary to above Bilateral renal calculi Possible urinary tract infection, failed outpatient Asthma not in exacerbation DVT prophylaxis with heparin subcu GI prophylaxis Full code Plan: Patient will be continued on IV hydration and pain management Toradol and Dilaudid. Continue with antibiotics in the form of ceftriaxone and follow-up urine culture report. Urine cultures remain pending. Urology following an r ecommend the patient strain urine and plan is for possible lithotripsy in the a.m. and patient will be nothing by mouth at midnight. Continue to follow closely. Will repeat am labs and await surgical report The impression and plan of care has been dictated by Nurse Luis Alberto Pra ctitioner as directed. Dr. Panchito MD I have performed a history and examination and MDM of this patient, discussed the same with the dictator, and agree with the dictator's assessment and plan as written ,documented as a scribe. Based on total visit time, I have performed more than 50% of the visit. Objective - Vital Signs Vital signs: Vital Signs Temp 98.1 F 03/12/22 05:00 Pulse 72 03/12/22 05:00 Resp 16 03/12/22 05:00 BP 95/57 03/12/22 05:00 Pulse Ox 98 03/12/22 05:00 FiO2 Intake & Output 03/11/22 03/12/22 03/12/22 18:59 06:59 18:59 Intake Total 540 1365 Output Total 85 Balance 540 1365 -85 Weight 62.596 kg Intake: Intake, IV Titration 300 825 Amount Sodium Chloride 0.9% 1, 825 000 ml @ 75 mls/hr IV . [id number] [facility] Rx#:[id number] cefTRIAXone 1 gm In 300 Sodium Chloride 0.9% 50 ml @ 100 mls/hr IVPB [facility] Rx#:[id number] Oral 240 540 Output: Post Void Residual 85 Other: Voiding Method Toilet Toilet # Voids 3 - Labs CBC & Chem 7: 03/12/22 05:48 03/12/22 05:48 Labs: Abnormal Lab Results - Last 24 Hours (Table) 03/11/22 03/11/22 03/11/22 Range/Units 13:48 13:48 14:32 WBC 12.1 H (3.8-10.6) k/uL RBC (4.10-5.20) X 10*6/uL Hgb (12.0-15.0) g/dL Hct (37.2-46.3) % Neutrophils # 8.0 H (1.3-7.7) k/uL Carbon Dioxide (20.0-27.5) mmol/L Anion Gap (10.00-18.00) mmol/L Glucose 105 H (74-99) mg/dL AST 38 H (14-36) U/L Urine Protein Trace H (Negative) Urine Ketones 1+ H (Negative) Urine Blood Large H (Negative) Ur Leukocyte Esterase Small H (Negative) Urine RBC >182 H (0-5) /hpf Urine WBC 11 H (0-5) /hpf Calcium Oxalate Crystal Rare H (None) /hpf Urine Bacteria Rare H (None) /hpf Urine Mucus Few H (None) /hpf 03/12/22 03/12/22 Range/Units 05:48 05:48 WBC (3.8-10.6) k/uL RBC 3.74 L (4.10-5.20) X 10*6/uL Hgb 11.4 L (12.0-15.0) g/dL Hct 35.3 L (37.2-46.3) % Neutrophils # (1.3-7.7) k/uL Carbon Dioxide 28.3 H (20.0-27.5) mmol/L Anion Gap 7.70 L (10.00-18.00) mmol/L Glucose (74-99) mg/dL AST (14-36) U/L Urine Protein (Negative) Urine Ketones (Negative) Urine Blood (Negative) Ur Leukocyte Esterase (Negative) Urine RBC (0-5) /hpf Urine WBC (0-5) /hpf Calcium Oxalate Crystal (None) /hpf Urine Bacteria (None) /hpf Urine Mucus (None) /hpf Microbiology - Last 24 Hours (Table) 03/11/22 14:32 Urine Culture - Preliminary Urine,Voided
[2022-03-13 06:42] LABS: Basophils # (A) 0.1 k/uL (0-0.2); Basophils % (A) 1 %; Eosinophils # (A) 0.1 k/uL (0-0.7); Eosinophils % (A) 2 %; HCT 33.8 % (34.0-46.0); Lymphocytes # (A) 1.7 k/uL (1.0-4.8); Lymphocytes % (A) 34 %; MCH 31.2 pg (25.0-35.0); MCHC 32.6 g/dL (31.0-37.0); MCV 95.7 fL (80.0-100.0); Mean Platelet Volume 8.4; Monocytes # (A) 0.3 k/uL (0-1.0); Monocytes % (A) 6 %; Neutrophils # (A) 2.8 k/uL (1.3-7.7); Neutrophils % (A) 56 %; Platelet Count 209 k/uL (150-450); RBC 3.53 m/uL (3.80-5.40); RDW 12.1 % (11.5-15.5)
[2022-03-13 06:59] LABS: African American GFR (CKD) >90 (>60 ml/min/1.73 sqM); Anion Gap 5 mmol/L; Blood Urea Nitrogen 8 mg/dL (7-17); Calcium 8.3 mg/dL (8.4-10.2); Carbon Dioxide 27 mmol/L (22-30); Chloride 110 mmol/L (98-107); Glucose 89 mg/dL (74-99); Non-African American GFR(CKD) >90 (>60 ml/min/1.73 sqM); Potassium 4.1 mmol/L (3.5-5.1); Sodium 142 mmol/L (137-145)
[2022-03-13] MEDS: TAMSULOSIN 0.4 MG CAP.ER.24H PO SCH (09:02)
[2022-03-13] MEDS: METOPROLOL TARTRATE 12.5 MG TAB PO SCH (09:02)
[2022-03-13] MEDS: SODIUM CHLORIDE 0.9% 1,000 ML IV SCH ×2 (09:02→23:42)
--- NOTE | 2022-03-13 20:37 | P.PN ---
Subjective Progress Note Date: 03/13/22 Patient is a 31-year-old female with a known history of asthma, SVT and no prior history of renal stones presents to ER with the complaints of right lower back pain. Patient states that she had severe sharp pain noted when she was at home currently and radiating down to the groin. Patient was seen in the emergency room few days ago with complaints of nausea vomiting and was diagnosed with gastroenteritis. Patient was sent home. At time urinalysis showed possible UTI. Mainly red blood cells. Patient was on her menses at the time and consequently patient was discharged home. Patient went to urgent care with similar complaints of dysuria and frequency. Patient was started on Keflex which she took 4 doses so far. Initially her symptoms improved but over the past 24 hours she has been having right flank discomfort and pain. Denies any vomiting currently. Slightly nauseated. No headache or dizziness. No fever no chills. No chest pain or shortness of breath. CT of the abdomen pelvis showed obstructing calculus at the right ureterovesical junction with hydronephrosis and hydroureter. Bilateral renal calculi. Laboratory data showed WBC 12.1 hemoglobin 13.0 and platelets 363 AST 38 ALT 31 alk phos 79. Urinalysis showed trace protein 1+ ketones and large blood and small leukocyte e sterase elevated RBCs and WBCs. 03/12/2022 Patient is seen in follow-up this morning continues with some right flank pain and continues to feel a decreased urine output although is urinating. Patient is noticing some blood in the urine and urology following the patient. Patient will be nothing by mouth at midnight and plan is for possible lithotripsy in the a.m. Patient is also maintained on IV antibiotics and will continue. Patient denies chest pain or shortness of breath. Patient currently afebrile. Patient tolerating diet with no reports of nausea or vomiting noted. Patient reports her pain is currently controlled and will continue current regimen. 03/13/2022 Patient evaluated today and continues with right flank pain and was tentatively scheduled for lithotripsy today with urology and scheduled for 6/15 am. Patient is afebrile and continues with generalized unwell feeling. Patient ok to resume diet and NPO at midnight. Continue IV antibiotics. Urine culture is negative. P atient denies any chest pain or shortness of breath. Review of systems: Constitutional: No reports of fatigue, fever, or chills Cardiovascular: No reports of chest pain or palpitations Respiratory: No reports of shortness of breath or cough GI: No reports of nausea, vomiting, or diarrhea : No reports of dysuria or retention Neurovascular: No reports of weakness or numbness All medications have been reviewed Active Medications Acetaminophen (Acetaminophen Tab 325 Mg Tab) 650 mg PO Q6HR PRN PRN Reason: Mild Pain or Fever > 100.5 Heparin Sodium (Porcine) (Heparin Sodium,Porcine/Pf 5,000 Unit/0.5 Ml Syringe) 5,000 unit SQ Q8HR [facility] Last Admin: 03/13/22 15:59 Dose: Not Given Hydromorphone HCl (Hydromorphone 0.5 Mg/0.5 Ml Syringe) 0.5 mg IVP Q6HR PRN PRN Reason: Pain Sodium Chloride (Saline 0.9%) 1,000 mls @ 75 mls/hr IV .[id number] [facility] Last Admin: 03/13/22 09:02 Dose: 75 mls/hr Ceftriaxone Sodium 1 gm/ (Sodium Chloride) 50 mls @ 100 mls/hr IVPB Q24HR [facility]; Protocol Last Admin: 03/13/22 09:03 Dose: 100 mls/hr Ibuprofen (Ibuprofen 400 Mg Tab) 400 mg PO Q6HR PRN PRN Reason: Mild Pain or Fever > 100.5 Last Admin: 03/11/22 23:11 Dose: 400 mg Ketorolac Tromethamine (Ketorolac 15 Mg/Ml 1 Ml Vial) 15 mg IVP Q6HR PRN PRN Reason: Moderate Pain Stop: 03/14/22 15:10 Last Admin: 03/13/22 17:37 Dose: 15 mg Metoprolol Tartrate (Metoprolol Tartrate 12.5 Mg Tab) 12.5 mg PO DAILY [facility] Last Admin: 03/13/22 09:02 Dose: 6.25 mg Metoprolol Tartrate (Metoprolol Tartrate 12.5 Mg Tab) 12.5 mg PO HS PRN PRN Reason: Blood Pressure - High Last Admin: 03/12/22 20:58 Dose: 12.5 mg Naloxone HCl (Naloxone 0.4 Mg/Ml 1 Ml Vial) 0.2 mg IV Q2M PRN PRN Reason: Opioid Reversal Ondansetron HCl (Ondansetron 4 Mg/2 Ml Vial) 4 mg IVP Q8HR PRN PRN Reason: Nausea And Vomiting Last Admin: 03/13/22 05:12 Dose: 4 mg Tamsulosin HCl (Tamsulosin 0.4 Mg Cap.Er.24h) 0.4 mg PO PC-BRKFST [facility] Last Admin: 03/13/22 09:02 Dose: 0.4 mg Physical exam: Patient is lying in the bed comfortably, no acute distress, awake alert and oriented.. HEENT: Normocephalic. Neck is supple. Pupils reactive. Nostrils clear. Oral cavity is moist. Neck reveals no JVD, carotid bruits, or thyromegaly. CHEST EXAMINATION: Trachea is central. Symmetrical expansion. Lung parikh clear to auscultation and percussion. CARDIAC: Normal S1, S2 with no gallops. No murmurs ABDOMEN: Soft. Bowel sounds present. Nontender. No organomegaly. No abdominal bruits. right CVA tenderness noted Extremities: reveal no edema. No clubbing or cyanosis Neurologically awake, alert, oriented x3 with well-coordinated movements. No focal deficits noted Skin: No rash or skin lesions. Psychiatric: Cooperative. Nonsuicidal, less anxious. Musculoskeletal: No joint swelling or deformity. Normal range of motion. Assessment: Right flank tenderness due to obstructing calculus at the right ureterovesicular junction. Hydroureters and hydronephrosis secondary to above Bilateral renal calculi Possible urinary tract infection, present on admission with failed outpatient Asthma not in exacerbation DVT prophylaxis with heparin subcu GI prophylaxis Full code Plan: Patient will be continued on IV hydration and pain management Toradol and Dilaudid. Continue with antibiotics in the form of ceftriaxone for now. Urine cultures are negative. Patient is afebrile. Urology following and recommend the patient continue to strain urine and plan is for possible lithotripsy in the a.m. and patient will be nothing by mouth at midnight. Continue to follow closely. Will repeat am labs and await surgical report The impression and plan of care has been dictated by Carmen Fragoso, Nurse Practitioner as directed. Dr. Panchito MD I have performed a history and examination and MDM of this patient, discussed the same with the dictator, and agree with the dictator's assessment and plan as written ,documented as a scribe. Based on total visit time, I have performed more than 50% of the visit. Objective - Vital Signs Vital signs: Vital Signs Temp 98.1 F 03/13/22 05:00 Pulse 91 03/13/22 05:00 Resp 16 03/13/22 05:00 BP 109/63 03/13/22 05:00 Pulse Ox 99 03/13/22 05:00 FiO2 Intake & Output 03/12/22 03/13/22 03/13/22 18:59 06:59 18:59 Intake Total 1000 Output Total 85 Balance -85 1000 Intake: IV 1000 Sodium Chloride 0.9% 1, 900 000 ml @ 75 mls/hr IV . [id number] [facility] Rx#:[id number] cefTRIAXone 1 gm In 100 Sodium Chloride 0.9% 50 ml @ 100 mls/hr IVPB Q24HR [facility] Rx#:[id number] Output: Post Void Residual 85 Other: Voiding Method Toilet Toilet # Voids 2 - Labs CBC & Chem 7: 03/13/22 06:09 03/13/22 06:09 Labs: Abnormal Lab Results - Last 24 Hours (Table) 03/13/22 03/13/22 Range/Units 06:09 06:09 RBC 3.53 L (3.80-5.40) m/uL Hgb 11.0 L (11.4-16.0) gm/dL Hct 33.8 L (34.0-46.0) % Chloride 110 H (98-107) mmol/L Calcium 8.3 L (8.4-10.2) mg/dL Microbiology - Last 24 Hours (Table) 03/11/22 14:32 Urine Culture - Final Urine,Voided
--- NOTE | 2022-03-13 21:34 | P.PN ---
Subjective Progress Note Date: 03/13/22 Still having flank pain this morning, denies any fevers or chills. Objective - Vital Signs Vital signs: Vital Signs Temp 98.3 F 03/13/22 20:46 Pulse 79 03/13/22 20:46 Resp 16 03/13/22 20:46 BP 101/64 03/13/22 20:46 Pulse Ox 98 03/13/22 20:46 FiO2 Intake & Output 03/13/22 03/13/22 03/14/22 06:59 18:59 06:59 Intake Total 1000 50 Balance 1000 50 Intake: IV 1000 50 Sodium Chloride 0.9% 1, 900 000 ml @ 75 mls/hr IV . [id number] [facility] Rx#:[id number] cefTRIAXone 1 gm In 100 50 Sodium Chloride 0.9% 50 ml @ 100 mls/hr IVPB Q24HR [facility] Rx#:[id number] Other: Voiding Method Toilet Toilet - Constitutional General appearance: Present: no acute distress - Gastrointestinal General gastrointestinal: Absent: distended, soft - Labs CBC & Chem 7: 03/13/22 06:09 03/13/22 06:09 Labs: Abnormal Lab Results - Last 24 Hours (Table) 03/13/22 03/13/22 Range/Units 06:09 06:09 RBC 3.53 L (3.80-5.40) m/uL Hgb 11.0 L (11.4-16.0) gm/dL Hct 33.8 L (34.0-46.0) % Chloride 110 H (98-107) mmol/L Calcium 8.3 L (8.4-10.2) mg/dL Assessment and Plan Assessment: 31-year-old female admitted to the hospital with a 4 mm right-sided distal stone secondary to intractable pain. still having pain this morning, we'll plan on going to the OR tomorrow for right-sided ureteroscopy with holmium laser lithotripsy -we'll start her on Flomax, strain her urine. -Continue ceftriaxone -Nothing by mouth past midnight
[2022-03-14] MEDS: KETOROLAC 15 MG/ML 1 ML VIAL IVP PRN ×2 (07:06→21:29)
[2022-03-14] MEDS: HEPARIN SODIUM,PORCINE/PF 5,000 UNIT/0.5 ML SYRINGE SQ SCH ×3 (07:10→23:41)
[2022-03-14] MEDS: METOPROLOL TARTRATE 12.5 MG TAB PO SCH (08:09)
--- NOTE | 2022-03-14 08:28 | P.PN ---
Subjective Progress Note Date: 03/14/22 Still having flank pain, has not passed the stone. Objective - Vital Signs Vital signs: Vital Signs Temp 98.2 F 03/14/22 04:24 Pulse 75 03/14/22 08:06 Resp 16 03/14/22 04:24 BP 106/66 03/14/22 08:06 Pulse Ox 98 03/14/22 08:06 FiO2 Intake & Output 03/13/22 03/14/22 03/14/22 18:59 06:59 18:59 Intake Total 50 900 Balance 50 900 Intake: IV 50 900 Sodium Chloride 0.9% 1, 900 000 ml @ 75 mls/hr IV . [id number] [facility] Rx#:[id number] cefTRIAXone 1 gm In 50 Sodium Chloride 0.9% 50 ml @ 100 mls/hr IVPB Q24HR [facility] Rx#:[id number] Other: Voiding Method Toilet Toilet Toilet # Voids 3 - Constitutional General appearance: Present: no acute distress - Gastrointestinal General gastrointestinal: Present: soft. Absent: distended - Labs CBC & Chem 7: 03/13/22 06:09 03/13/22 06:09 Assessment and Plan Assessment: 31-year-old female admitted to the hospital with a 4 mm right-sided distal stone secondary to intractable pain. still having pain this morning, -Continue ceftriaxone -Nothing by mouth -Or for right-sided ureteroscopy with holmium laser lithotripsy and possible stent insertion
[2022-03-14] MEDS ORDERED: IV FLUID CONTINUATION 1,000 ML IV ONE (12:12)
[2022-03-14] MEDS ORDERED: ONDANSETRON 4 MG/2 ML VIAL IVP ONE (12:30)
[2022-03-14] MEDS ORDERED: DEXAMETHASONE SOD PHOSPHATE 4 MG/ML 1 ML VIAL IVP ONE (12:30)
[2022-03-14] MEDS ORDERED: LIDOCAINE 2% INJ 20 MG/ML (2 ML VIAL) ONE (13:22)
[2022-03-14] MEDS ORDERED: SUCCINYLCHOLINE CHLORIDE 100 MG/5 ML SYR IV ONE (13:22)
[2022-03-14] MEDS ORDERED: PROPOFOL 10 MG/ML 20 ML VIAL IV ONE (13:22)
[2022-03-14] MEDS ORDERED: fentaNYL (PF) 50 MCG/ML 2 ML AMP ONE (13:22)
[2022-03-14] MEDS ORDERED: MIDAZOLAM 2 MG/2 ML VIAL ONE (13:22)
[2022-03-14] MEDS ORDERED: SODIUM CHLORIDE 0.9% 50 ML with ceFAZolin 1,000 MG IV ONE ×2 (13:43)
[2022-03-14] MEDS ORDERED: LACTATED RINGERS 1,000 ML IV ONE ×2 (13:55)
--- NOTE | 2022-03-14 14:23 | P.OP ---
Date of Procedure: 03/14/22 Preoperative Diagnosis: Right ureteral stone Postoperative Diagnosis: Same Procedure(s) Performed: Cystoscopy, right ureteroscopy, holmium laser lithotripsy, stone basketing Implants: None Anesthesia: LISSAA Surgeon: Chase Avina Estimated Blood Loss (ml): 1 Pathology: other (Right-sided ureteral and renal stones) Condition: stable Disposition: PACU Indications for Procedure: 31-year-old female with history of a 4 mm right-sided distal ureteral stone, has been having intractable pain secondary to her stone. Discussed with her the option of ureteroscopy with holmium laser. Discussed the risk of surgery which includes not limited to bleeding, infection, injury to the ureter. Discussed also with her we will address her remaining stone in the right kidney at the same setting. She understood all the risk and agreed to proceed Operative Findings: Right distal ureteral stone, multiple renal stones Description of Procedure: Patient brought to the operating room, general anesthesia was induced. She was prepped and draped in sterile fashion and placed in dorsal lithotomy position. Cystoscopy fitted with a 21-Azeri sheath was inserted per urethra, cystoscopy was performed showed no abnormality within the bladder. Attention was then carried to the right ureteral orifice, a semirigid ureteroscope was advanced up the right ureteral orifice, a stone was encountered in the distal ureter. Using the holmium laser the stone was fragmented into small fragments, sizable fragments were removed using the stone basket. At this time the ureteroscope was advanced all the way up to the UPJ which showed no additional fragments or injury to the ureter. Pullback ureteroscopy was performed showed no injury to the ureter or any remaining fragments as the ureteroscope was withdrawn, a sensor wire was advanced through. The wire location was confirmed on fluoroscopy and was in the renal pelvis. Next under fluoroscopy an 1113 Azeri access sheath was passed over and into the proximal ureter. Next a flexible ureteroscope was inserted through the access sheath, renoscopy was performed which showed multiple stones within the kidney. Using the holmium laser the stones awere dusted, one of the larger stones was basketed intact. Repeat renoscopy showed no sizable fragments or injury to the kidney. Pullback ureteroscopy was performed which showed no injury to the ureter or any remaining fragments. Of note there was minimal ureteral edema thus a stent was not placed. The bladder was emptied at the end of the case. Patient tolerated the procedure well was taken to recovery in stable condition
[2022-03-14] MEDS ORDERED: HYDROmorphone 0.5 MG/0.5 ML SYRINGE IVP ONE ×2 (15:15→15:38)
--- NOTE | 2022-03-14 15:24 | FL ---
Fluoroscopy HISTORY: Obstructive nephrolithiasis 3 seconds fluoroscopy time supplied to the referring clinician. 1 intraoperative C-arm images docume nt the procedure. See dictated report from urology.
[2022-03-14] MEDS: TAMSULOSIN 0.4 MG CAP.ER.24H PO SCH (16:37)
[2022-03-14] MEDS: IBUPROFEN 400 MG TAB PO PRN (17:22)
[2022-03-14] MEDS: ONDANSETRON 4 MG/2 ML VIAL IVP PRN (19:15)
[2022-03-14] MEDS: SODIUM CHLORIDE 0.9% 1,000 ML IV SCH (21:43)
[2022-03-14 21:49] VITALS: RESP 18
--- NOTE | 2022-03-15 05:24 | P.PN ---
Subjective Progress Note Date: 03/14/22 Patient is a 31-year-old female with a known history of asthma, SVT and no prior history of renal stones presents to ER with the complaints of right lower back pain. Patient states that she had severe sharp pain noted when she was at home currently and radiating down to the groin. Patient was seen in the emergency room few days ago with complaints of nausea vomiting and was diagnosed with gastroenteritis. Patient was sent home. At time urinalysis showed possible UTI. Mainly red blood cells. Patient was on her menses at the time and consequently patient was discharged home. Patient went to urgent care with similar complaints of dysuria and frequency. Patient was started on Keflex which she took 4 doses so far. Initially her symptoms improved but over the past 24 hours she has been having right flank discomfort and pain. Denies any vomiting currently. Slightly nauseated. No headache or dizziness. No fever no chills. No chest pain or shortness of breath. CT of the abdomen pelvis showed obstructing calculus at the right ureterovesical junction with hydronephrosis and hydroureter. Bilateral renal calculi. Laboratory data showed WBC 12.1 hemoglobin 13.0 and platelets 363 AST 38 ALT 31 alk phos 79. Urinalysis showed trace protein 1+ ketones and large blood and small leukocyte e sterase elevated RBCs and WBCs. 03/12/2022 Patient is seen in follow-up this morning continues with some right flank pain and continues to feel a decreased urine output although is urinating. Patient is noticing some blood in the urine and urology following the patient. Patient will be nothing by mouth at midnight and plan is for possible lithotripsy in the a.m. Patient is also maintained on IV antibiotics and will continue. Patient denies chest pain or shortness of breath. Patient currently afebrile. Patient tolerating diet with no reports of nausea or vomiting noted. Patient reports her pain is currently controlled and will continue current regimen. 03/13/2022 Patient evaluated today and continues with right flank pain and was tentatively scheduled for lithotripsy today with urology and scheduled for 6/15 am. Patient is afebrile and continues with generalized unwell feeling. Patient ok to resume diet and NPO at midnight. Continue IV antibiotics. Urine culture is negative. P atient denies any chest pain or shortness of breath. 03/14/2022 Patient is seen this morning and reports to continued right flank pain and becoming more intense. Patient reports to toradol originally relieving the pain although not as effective at this time. IV pain medications ordered. Patient is NPO and scheduled for cystoscopy with urology today. Patient is afebrile and denies chest pain or shortness of breath. Will await surgical report. Continue IV ceftriaxone for now. Review of systems: Constitutional: No reports of fatigue, fever, or chills, reports worsening right flank pain Cardiovascular: No reports of chest pain or palpitations Respiratory: No reports of shortness of breath or cough GI: No reports of nausea, vomiting, or diarrhea : No reports of dysuria or retention Neurovascular: No reports of weakness or numbness All medications have been reviewed Active Medications Acetaminophen (Acetaminophen Tab 325 Mg Tab) 650 mg PO Q6HR PRN PRN Reason: Mild Pain or Fever > 100.5 Heparin Sodium (Porcine) (Heparin Sodium,Porcine/Pf 5,000 Unit/0.5 Ml Syringe) 5,000 unit SQ Q8HR [facility] Last Admin: 03/14/22 23:41 Dose: Not Given Hydromorphone HCl (Hydromorphone 0.5 Mg/0.5 Ml Syringe) 0.5 mg IVP Q6HR PRN PRN Reason: Pain Last Admin: 03/14/22 19:19 Dose: 0.5 mg Sodium Chloride (Saline 0.9%) 1,000 mls @ 75 mls/hr IV .[id number] [facility] Last Admin: 03/14/22 21:43 Dose: 75 mls/hr Ceftriaxone Sodium 1 gm/ (Sodium Chloride) 50 mls @ 100 mls/hr IVPB Q24HR [facility]; Protocol Last Admin: 03/14/22 08:26 Dose: 100 mls/hr Ibuprofen (Ibuprofen 400 Mg Tab) 400 mg PO Q6HR PRN PRN Reason: Mild Pain or Fever > 100.5 Last Admin: 03/14/22 17:22 Dose: 400 mg Ketorolac Tromethamine (Ketorolac 15 Mg/Ml 1 Ml Vial) 15 mg IVP Q6HR PRN PRN Reason: Moderate Pain Stop: 03/17/22 19:23 Last Admin: 03/14/22 21:29 Dose: 15 mg Metoprolol Tartrate (Metoprolol Tartrate 12.5 Mg Tab) 12.5 mg PO DAILY [facility] Last Admin: 03/14/22 08:09 Dose: 6.25 mg Metoprolol Tartrate (Metoprolol Tartrate 12.5 Mg Tab) 12.5 mg PO HS PRN PRN Reason: Blood Pressure - High Last Admin: 03/12/22 20:58 Dose: 12.5 mg Naloxone HCl (Naloxone 0.4 Mg/Ml 1 Ml Vial) 0.2 mg IV Q2M PRN PRN Reason: Opioid Reversal Ondansetron HCl (Ondansetron 4 Mg/2 Ml Vial) 4 mg IVP Q8HR PRN PRN Reason: Nausea And Vomiting Last Admin: 03/14/22 19:15 Dose: 4 mg Tamsulosin HCl (Tamsulosin 0.4 Mg Cap.Er.24h) 0.4 mg PO PC-BRKFST [facility] Last Admin: 03/14/22 16:37 Dose: Not Given Physical exam: Patient is sitting in the bed comfortably, awake alert and oriented.. HEENT: Normocephalic. Neck is supple. Pupils reactive. Nostrils clear. Oral cavity is moist. Neck reveals no JVD, carotid bruits, or thyromegaly. CHEST EXAMINATION: Trachea is central. Symmetrical expansion. Lung parikh clear to auscultation and percussion. CARDIAC: Normal S1, S2 with no gallops. No murmurs ABDOMEN: Soft. Bowel sounds present. Nontender. No organomegaly. No abdominal bruits. right CVA tenderness noted Extremities: reveal no edema. No clubbing or cyanosis Neurologically awake, alert, oriented x3 with well-coordinated movements. No focal deficits noted Skin: No rash or skin lesions. Psychiatric: Cooperative. Nonsuicidal, appears uncomfortable. Musculoskeletal: No joint swelling or deformity. Normal range of motion. Assessment: Right flank tenderness due to obstructing calculus at the right ureterovesicular junction. Hydroureters and hydronephrosis secondary to above Bilateral renal calculi Possible urinary tract infection, present on admission with failed outpatient Asthma not in exacerbation DVT prophylaxis with heparin subcu GI prophylaxis Full code Plan: Patient will be continued on IV hydration and pain management. Continue with antibiotics in the form of ceftriaxone for now. Urine cultures are negative. Patient is afebrile. Urology following and plan is for lithotripsy today and patient continues to be nothing by mouth. Continue to follow closely. Will await surgical report. The impression and plan of care has been dictated by Carmen Fragoso, Nurse Practitioner as directed. Dr. Panchito MD I have performed a history and examination and MDM of this patient, discussed the same with the dictator, and agree with the dictator's assessment and plan as written ,documented as a scribe. Based on total visit time, I have performed more than 50% of the visit. Objective - Vital Signs Vital signs: Vital Signs Temp 98.3 F 03/15/22 04:18 Pulse 70 03/15/22 04:18 Resp 18 03/15/22 04:18 BP 109/65 03/15/22 04:18 Pulse Ox 97 03/15/22 04:18 FiO2 Intake & Output 03/14/22 03/14/22 03/15/22 06:59 18:59 06:59 Intake Total 900 1350 500 Output Total 301 Balance 900 1049 500 Weight 62.596 kg Intake: IV 900 1350 Sodium Chloride 0.9% 1, 900 000 ml @ 75 mls/hr IV . [id number] [facility] Rx#:[id number] Oral 500 Output: Urine 300 Estimated Blood Loss 1 Other: Voiding Method Toilet Toilet Toilet # Voids 3 1 3 - Labs CBC & Chem 7: 03/13/22 06:09 03/13/22 06:09
[2022-03-15] MEDS: SODIUM CHLORIDE 0.9% 1,000 ML IV SCH (06:11)
[2022-03-15 06:56] LABS: Basophils % (A) 1 %; Eosinophils % (A) 0 %; HCT 33.3 % (34.0-46.0); HGB 10.8 gm/dL (11.4-16.0); Lymphocytes # (A) 1.7 k/uL (1.0-4.8); Lymphocytes % (A) 20 %; MCH 30.9 pg (25.0-35.0); MCHC 32.6 g/dL (31.0-37.0); MCV 94.9 fL (80.0-100.0); Mean Platelet Volume 9.2; Monocytes # (A) 0.5 k/uL (0-1.0); Monocytes % (A) 6 %; Neutrophils # (A) 6.1 k/uL (1.3-7.7); Neutrophils % (A) 72 %; Platelet Count 193 k/uL (150-450); RBC 3.51 m/uL (3.80-5.40); RDW 12.1 % (11.5-15.5); WBC 8.5 k/uL (3.8-10.6)
[2022-03-15 07:09] LABS: African American GFR (CKD) >90 (>60 ml/min/1.73 sqM); Anion Gap 6 mmol/L; Blood Urea Nitrogen 12 mg/dL (7-17); Calcium 8.5 mg/dL (8.4-10.2); Carbon Dioxide 27 mmol/L (22-30); Chloride 107 mmol/L (98-107); Glucose 88 mg/dL (74-99); Non-African American GFR(CKD) >90 (>60 ml/min/1.73 sqM); Sodium 140 mmol/L (137-145)
[2022-03-15] MEDS: METOPROLOL TARTRATE 12.5 MG TAB PO SCH (08:20)
[2022-03-15] MEDS: TAMSULOSIN 0.4 MG CAP.ER.24H PO SCH ×2 (08:20→08:21)
[2022-03-15] MEDS: HEPARIN SODIUM,PORCINE/PF 5,000 UNIT/0.5 ML SYRINGE SQ SCH (08:21)
[2022-03-15] MEDS: KETOROLAC 15 MG/ML 1 ML VIAL IVP PRN (08:27)
--- NOTE | 2022-03-15 11:03 | P.PN ---
Subjective S/P right ureteroscopy with holmium laser yesterday. Had flank pain and gross hematuria yesterday, resolving this morning. Objective - Vital Signs Vital signs: Vital Signs Temp 98.3 F 03/15/22 04:18 Pulse 70 03/15/22 04:18 Resp 18 03/15/22 04:18 BP 109/65 03/15/22 04:18 Pulse Ox 97 03/15/22 04:18 FiO2 Intake & Output 03/14/22 03/15/22 03/15/22 18:59 06:59 18:59 Intake Total 1350 500 Output Total 301 Balance 1049 500 Weight 62.596 kg Intake: IV 1350 Oral 500 Output: Urine 300 Estimated Blood Loss 1 Other: Voiding Method Toilet Toilet # Voids 1 3 - Constitutional General appearance: Present: no acute distress - Gastrointestinal General gastrointestinal: Present: soft. Absent: distended - Psychiatric Psychiatric: Present: A&O x's 3 - Labs CBC & Chem 7: 03/15/22 06:33 03/15/22 06:33 Labs: Abnormal Lab Results - Last 24 Hours (Table) 03/15/22 Range/Units 06:33 RBC 3.51 L (3.80-5.40) m/uL Hgb 10.8 L (11.4-16.0) gm/dL Hct 33.3 L (34.0-46.0) % Assessment and Plan Assessment: 31-year-old female admitted to the hospital with a 4 mm right-sided distal stone secondary to intractable pain. Underwent right-sided ureteroscopy with holmium laser lithotripsy yesterday, was having flank pain, which proved this morning. -Or for discharge from urology standpoint -F/U 2 weeks
[2022-03-15 11:44] VITALS: BP 97/61; PULSE 72; TEMP 98
--- NOTE | 2022-03-16 10:38 | P.DS ---
Providers Date of admission: 03/11/22 14:56 Expected date of discharge: 03/15/22 Attending physician: Bety Flanagan Consults: 03/11/22 15:09 Consult Physician Routine Consulting Provider: Mario Sheth Consult Reason/Comments: Obstructive nephrolithiasis Do you want consulting provider notified?: Already Contacted Primary care physician: Naresh Fontana [facility] Course: Final diagnosis Right flank tenderness due to obstructing calculus at the right ureterovesicular junction. Hydroureters and hydronephrosis secondary to above Bilateral renal calculi status post right ureteroscopy with holmium laser lithotripsy and stone removal Possible urinary tract infection, present on admission with failed outpatient Asthma not in exacerbation DVT prophylaxis GI prophylaxis Full code Discharge disposition Patient is being discharged in a stable condition with guarded prognosis to home. Patient will follow-up with Dr. Fontana in the outpatient setting upon discharge. Patient is to follow-up with urology as scheduled. She will continue on Flomax for now until urological follow-up. Total time taken is greater than 35 minutes. Hospital course This is a 31-year-old female who was recently admitted with failed outpatient possible UTI although came in and was found to have nausea and vomiting and sent home with gastroenteritis patient returned with worsening right flank pain and also having dysuria and feelings of retention and CT abdomen showed an obstructing calculus in the right ureteral vesicular junction with hydronephrosis and hydroureter and bilateral renal calculi. Patient underwent cystoscopy with stone removal and extraction and avoided a stent at this time and patient will have close outpatient follow-up with urology next week. Patient encouraged fluids and rest and monitoring for any worsening symptoms or further urinary retention. Patient will continue on Flomax 0.4 mg for the next few weeks until urology follow-up. Patient is feeling better and pain were managed and would like to go home today. Currently no reports of chest pain, shortness of breath, or palpitations. Patient is afebrile. No reports of nausea or vomiting and patient is tolerating diet. Patient will be discharged home today. On exam vital signs are stable. Cardio S1, S2 are muffled. Respiratory system shows diminished breath sounds at the bases with no wheezing or rhonchi noted. Abdomen is soft and nontender. Nervous system shows no focal deficits. Please refer to medication reconciliation sheet for a list of medications. The impression and plan of care has been dictated by Carmen Fragoso, Nurse Practitioner as directed. Dr. Panchito MD I have performed a history and examination and MDM of this patient, discussed the same with the dictator, and agree with the dictator's assessment and plan as written ,documented as a scribe. Based on total visit time, I have performed more than 50% of the visit. Patient Condition at Discharge: Stable Plan - Discharge Summary Discharge Rx Participant: No New Discharge Prescriptions: New Acetaminophen Tab [Tylenol] 650 mg PO Q6HR PRN tab PRN Reason: Mild Pain Or Fever > 100.5 Ketorolac [Toradol] 10 mg PO Q6HR #10 tab Tamsulosin [Flomax] 0.4 mg PO PC-BRKFST 30 Days #30 cap Continue Metoprolol Tartrate [Lopressor] 6.25 - 12.5 mg PO DAILY Metoprolol Tartrate [Lopressor] 12.5 mg PO HS PRN PRN Reason: Blood Pressure - High Ondansetron Odt [Zofran ODT] 4 mg PO Q8HR PRN #10 tab PRN Reason: Nausea Discontinued Cephalexin [Keflex] 500 mg PO QID Discharge Medication List Ondansetron Odt [Zofran ODT] 4 mg PO Q8HR PRN #10 tab 03/07/22 [Rx] Metoprolol Tartrate [Lopressor] 6.25 - 12.5 mg PO DAILY 03/12/22 [History] Metoprolol Tartrate [Lopressor] 12.5 mg PO HS PRN 03/12/22 [History] Ketorolac [Toradol] 10 mg PO Q6HR #10 tab 03/14/22 [Rx] Acetaminophen Tab [Tylenol] 650 mg PO Q6HR PRN tab 03/15/22 [Rx] Tamsulosin [Flomax] 0.4 mg PO PC-BRKFST 30 Days #30 cap 03/15/22 [Rx] Follow up Appointment(s)/Referral(s): Chase Avina MD [STAFF PHYSICIAN] - 03/22/22 2:40 pm Naresh Fontana MD [Primary Care Provider] - 03/21/22 11:00 am (Please bring any medication you are on.) Patient Instructions/Handouts: Ketorolac (By mouth), Tamsulosin (By mouth) Activity/Diet/Wound Care/Special Instructions: Activity Limited until follow-up Follow-up with primary care provider on discharge Follow-up with urology as discussed Continue taking current medications Continue straining urine Encourage fluids and rest Continue with Toradol or Motrin, and/or Tylenol for pain Monitor for any decrease in urine output or worsening symptoms Discharge Disposition: HOME SELF-CARE
== END 2022-03-15 14:38 | disposition home or self-care (01) | DRG 694 ==
LOC: EC 12:55 → 5NMEDONC 14:56
PROVIDERS: ADMIT Internal Medicine; ATTEND Internal Medicine
PROC: 0TC68ZZ Extirpation of Matter from Right Ureter, Via Natural or Artificial Opening Endoscopic (ICD-10-PCS; principal; 2022-03-14 12:30)
PROC: 0TJ98ZZ Inspection of Ureter, Via Natural or Artificial Opening Endoscopic (ICD-10-PCS; principal; 2022-03-14 12:30)
DX: N13.2 Hydronephrosis with renal and ureteral calculous obstruction (principal); I47.1 Supraventricular tachycardia; R31.0 Gross hematuria; J45.909 Unspecified asthma, uncomplicated; K52.9 Noninfective gastroenteritis and colitis, unspecified; Z87.09 Personal history of other diseases of the respiratory system; Z98.890 Other specified postprocedural states; Z88.6 Allergy status to analgesic agent; Z88.8 Allergy status to other drugs, medicaments and biological substances; Z79.82 Long term (current) use of aspirin; Z79.899 Other long term (current) drug therapy
CPT/HCPCS: 36415; 74176; 80048; 80053; 81001; 81025; 82365; 85025; 87086; 96361; 96374; 96375; 99285

== ENCOUNTER → 2022-10-12 | Outpatient (CLI) | payer MEDICAID ==
[2022-10-12 19:50] LABS: T4, Free (Free Thyroxine) 1.15 ng/dL (0.800-1.800)
[2022-10-12 20:10] LABS: African American GFR (CKD) 111.1 (60.0-200.0); Albumin 4.6 g/dL (3.8-4.9); Albumin/Globulin Ratio 1.82 (1.60-3.17); Anion Gap 14.2 mmol/L (10.00-18.00); BUN/Creat Ratio 15.99 Ratio (12.00-20.00); Blood Urea Nitrogen 12.9 mg/dL (9.0-27.0); Calcium 9.6 mg/dL (8.7-10.3); Carbon Dioxide 23.3 mmol/L (20.0-27.5); Globulin 2.5 g/dL (1.6-3.3); Non-African American GFR(CKD) 95.9 (60.0-200.0); Potassium 4.5 mmol/L (3.5-5.5); Total Bilirubin 0.3 mg/dL (0.30-1.20); Total Protein 7.1 g/dL (6.2-8.2)
== END | disposition home or self-care (01) ==
LOC: LABWHC1 10:05
PROVIDERS: ATTEND Internal Medicine
DX: E07.9 Disorder of thyroid, unspecified (principal); E55.9 Vitamin D deficiency, unspecified; N20.0 Calculus of kidney
CPT/HCPCS: 36415; 80053; 82306; 83970; 84439; 84443; 86376

== ENCOUNTER → 2022-10-16 | Outpatient (CLI) | payer MEDICAID ==
--- NOTE | 2022-10-16 18:22 | US ---
EXAMINATION TYPE: US thyroid st tissue head/neck DATE OF EXAM: 10/16/2022 COMPARISON: NONE CLINICAL HISTORY: 32-year-old female E07.9 disorder of thyroid. Pt states abnormal thyroid labs TECHNIQUE: Multiple sonographic images of the thyroid gland are obtained. FINDINGS: GLAND SIZE: Right Lobe: 4.0 x 1.3 x 1.7 cm Overall Parenchyma: homogenous Left Lobe: 4.4 x 1.3 x 1.2 cm Overall Parenchyma: homogeneous Isthmus Thickness: 0.3 cm NODULES RIGHT: # of nodules measured on right: 0 LEFT: # of nodules measured on left: 0 ISTHMUS: # of nodules measured in the isthmus: 0 Bilateral neck scanned, no evidence of lymphadenopathy. Bilateral thyroid appeared wnl. IMPRESSION: Unremarkable sonographic examination of the thyroid gland.
== END | disposition home or self-care (01) ==
LOC: RADUSWWP 12:53
PROVIDERS: ATTEND Internal Medicine
DX: E07.9 Disorder of thyroid, unspecified (principal)
CPT/HCPCS: 76536

== ENCOUNTER → 2023-05-24 | Outpatient (CLI) | payer MEDICAID ==
[2023-05-25 01:39] LABS: ALT 15 U/L (8-44); AST 19 U/L (13-35); Albumin 4.9 d/dL (3.8-4.9); Albumin/Globulin Ratio 1.88 Ratio (1.60-3.17); Alkaline Phosphatase 84 U/L (41-126); BUN/Creat Ratio 21.88 Ratio (12.00-20.00); Blood Urea Nitrogen 17.5 mg/dL (9.0-27.0); C-Peptide 2.47 ng/mL (0.81-3.85); Calcium 10.3 mg/dL (8.7-10.3); Carbon Dioxide 26.7 mmol/L (21.6-31.8); Chloride 102 mmol/L (96-109); Chol/HDL Ratio 2.72 Ratio; Globulin 2.6 d/dL (1.6-3.3); Glucose 81 mg/dL (70-110); LDL Cholesterol,Calculated 101.4 mg/dL (0.0-131.0); Potassium 4.8 mmol/L (3.5-5.5); Sodium 140 mmol/L (135-145); Total Bilirubin 0.3 mg/dL (0.3-1.2); Total Protein 7.5 d/dL (6.2-8.2)
[2023-05-25 01:55] LABS: Basophils # (A) 0.07 X 10*3/uL (0.00-0.10); Basophils % (A) 0.7 %; Eosinophils # (A) 0.11 X 10*3/uL (0.04-0.35); HCT 42.1 % (37.2-46.3); HGB 13.7 d/dL (12.0-15.0); Lymphocytes # (A) 2.28 X 10*3/uL (0.90-5.00); Lymphocytes % (A) 21.4 %; MCH 31.2 pg (27.0-32.0); MCHC 32.5 d/dL (32.0-37.0); MCV 95.9 FL (80.0-97.0); Mean Platelet Volume 12.1 FL (9.5-12.2); Monocytes # (A) 0.75 X 10*3/uL (0.20-1.00); Monocytes % (A) 7.1 %; NRBC Per 100 WBC 0 X 10*3/uL (0.00-0.01); Neutrophils # (A) 7.37 X 10*3/uL (1.80-7.70); Neutrophils % (A) 69.3 %; Platelet Count 262 X 10*3/uL (140-440); RBC 4.39 X 10*6/uL (4.10-5.20); RDW 12.2 % (11.5-14.5); WBC 10.63 X 10*3/uL (4.50-10.00)
[2023-05-25 02:53] LABS: T4, Free (Free Thyroxine) 1.33 ng/dL (0.80-1.80)
== END | disposition home or self-care (01) ==
LOC: LABWHC1 13:02
PROVIDERS: ATTEND Internal Medicine Geriatric Medicine
DX: E55.9 Vitamin D deficiency, unspecified (principal); E16.2 Hypoglycemia, unspecified; E78.2 Mixed hyperlipidemia; E07.9 Disorder of thyroid, unspecified; R73.9 Hyperglycemia, unspecified
CPT/HCPCS: 36415; 80053; 80061; 82306; 83036; 83525; 84439; 84443; 84681; 85025

== ENCOUNTER → 2023-10-03 | Outpatient (CLI) | payer MEDICAID ==
--- NOTE | 2023-10-03 07:47 | MM ---
Reason for Exam: Clinical finding. Baseline mammogram. Indicated Problems: Lump or thickening of the right side for 4 Month(s). Patient History: Menarche at age 13. First Full-Term at age 23. Premenopausal. Hormonal Contraceptives, starting at age 17 for 2 years. Maternal cousin had breast cancer. Maternal aunt (great) had breast cancer. Prior Study Comparison: Patient's first Mammogram. Tissue Density: The breast tissue is heterogeneously dense. This may lower the sensitivity of mammography. Findings: Analyzed By CAD. Pattern appears symmetrical. Left breast is larger than the right. A marker overlies a palpable region in the anterior right breast. No underlying mammographic abnormality is evident. Ultrasound is recommended for additional evaluation. Some benign-appearing round calcifications are in the upper left mediolateral oblique view. There are rounded densities within the left breast better visualized on tomographic imaging. This measures 1.4 cm in the upper portion and 0.6 cm in the posterior position. Couple smaller adjacent areas are nearly smaller lesion. Findings likely represent cysts. Additional evaluation with ultrasound is recommended. No suspicious groups of microcalcifications, spiculated or lobular masses, architectural distortion or other secondary signs of malignancy are mammographically apparent. Overall Assessment: Incomplete: need additional imaging evaluation, BI-RAD 0 Management: Diagnostic Breast Ultrasound of both breasts. A negative mammogram report should not preclude additional follow up of suspicious palpable abnormalities. Patient should continue monthly self breast exam. A clinical breast exam by your physician is recommended on an annual basis and results should be correlated with mammographic findings. Electronically signed and approved by: Nicola Erickson D.O. Radiologis
--- NOTE | 2023-10-03 08:15 | USB ---
Reason for Exam: Clinical finding. Patient History: Menarche at age 13. First Full-Term at age 23. Premenopausal. Hormonal Contraceptives, starting at age 17 for 2 years. Maternal cousin had breast cancer. Maternal aunt (great) had breast cancer. Technique: Method: Targeted. Findings: The whole breast of the left breast, the upper inner quadrant of the right breast, the area of palpable concern of the right breast, the axilla of the left breast and the retroareolar of both breasts were scanned. Within the right breast 12:00 position 2 cm from nipple is a 1.3 x 0.7 x 1.4 cm simple appearing cyst. Clinical management recommended. Within the left breast 3 cm from the nipple 2:00 position is a 1.3 x 0.8 x 1.2cm simple appearing cyst. There is a group of small cysts at the 9:00 position measuring approximately 1.1 x 0.4 x 0.8 cm in size. Overall Assessment: Benign, BI-RAD 2 Management: Screening Mammogram of both breasts in 1 year. A clinical breast exam by your physician is recommended on an annual basis and results should be correlated with mammographic findings. This exam should not preclude additional follow-up of suspicious palpable abnormalities. Results were given to the patient verbally at the time of exam. Electronically signed and approved by: Nicola Erickson D.O. Radiologis
== END | disposition home or self-care (01) ==
LOC: RADMAMWWP 07:02
PROVIDERS: ATTEND Obstetrics & Gynecology
DX: N60.01 Solitary cyst of right breast (principal); N60.02 Solitary cyst of left breast; Z80.3 Family history of malignant neoplasm of breast
CPT/HCPCS: 77062; 77066

== ENCOUNTER 2024-08-14 08:00 | Emergency (ER) | payer BC, MEDICAID ==
--- NOTE | 2024-08-14 08:29 | ED ---
Abdominal Pain HPI - General Chief Complaint: Abdominal Pain Stated Complaint: Abd pain Time Seen by Provider: 08/14/24 08:11 Source: patient, RN notes reviewed Mode of arrival: ambulatory Limitations: no limitations - History of Present Illness Initial Comments: This is a 34-year-old female who presents to the emergency department for abdominal pain. Patient reports intermittent epigastric pain over the last 3 days. States that it occurs in waves. Pain is worse after eating. Describes it as a cramping sensation. Today the pain has been constant, however she is having episodes where the pain jumps to a 10 out of 10 for a few seconds before going back down. She has associated nausea but no vomiting. Denies any diarrhea or constipation. Denies any history of similar problems in the past. MD Complaint: abdominal pain - Related Data Home Medications Medication Instructions Recorded Confirmed Cholecalciferol [Vitamin D3 (125 125 mcg PO DAILY 08/14/24 08/14/24 Mcg = 5000 Iu)] Metoprolol Succinate (ER) [Toprol 12.5 mg PO DAILY 08/14/24 08/14/24 Xl] Multivit with Calcium,Iron,Min 1 tab PO DAILY 08/14/24 08/14/24 [Women's Multivitamin] Previous Rx's Medication Instructions Recorded Famotidine 40 mg PO DAILY 30 Days #30 tablet 08/14/24 Hyoscyamine Sulfate [Levsin] 0.125 mg PO Q4-6H PRN #30 tab 08/14/24 Pantoprazole Sodium 40 mg PO DAILY 30 Days #30 tab 08/14/24 Allergies Allergy/AdvReac Type Severity Reaction Status Date / Time aspirin Allergy Intermediate Wheezing Verified 08/14/24 10:18 prochlorperazine edisylate Allergy Intermediate DYSTONIA Verified 08/14/24 10:18 [From Compazine] REACTION prochlorperazine maleate Allergy Intermediate DYSTONIA Verified 08/14/24 10:18 [From Compazine] REACTION paroxetine [From Paxil] Allergy Nausea & Verified 08/14/24 10:18 Vomiting Review of Systems ROS Statement: Those systems with pertinent positive or pertinent negative responses have been documented in the HPI. ROS Other: All systems not noted in ROS Statement are negative. Past Medical History Past Medical History: Asthma, Supraventricular Tachycardia (SVT) Additional Past Medical History / Comment(s): asthma as a child, kidney stones History of Any Multi-Drug Resistant Organisms: None Reported Past Surgical History: Appendectomy Additional Past Surgical History / Comment(s): d & c Past Anesthesia/Blood Transfusion Reactions: Previous Problems w/ Anesthesia Additional Past Anesthesia/Blood Transfusion Reaction / Comment(s): slow to wake up Past Psychological History: No Psychological Hx Reported Smoking Status: Never smoker Past Alcohol Use History: Occasional Past Drug Use History: None Reported - Past Family History Mother Family Medical History: No Reported History General Exam Limitations: no limitations General appearance: alert, in no apparent distress Head exam: Present: atraumatic, normocephalic, normal inspection Respiratory exam: Present: normal lung sounds bilaterally. Absent: respiratory distress, wheezes, rales, rhonchi, stridor Cardiovascular Exam: Present: regular rate, normal rhythm, normal heart sounds. Absent: systolic murmur, diastolic murmur, rubs, gallop, clicks GI/Abdominal exam: Present: soft, tenderness (Epigastric), normal bowel sounds. Absent: distended Neurological exam: Present: alert, oriented X3, CN II-XII intact Psychiatric exam: Present: normal affect, normal mood Skin exam: Present: warm, dry, intact, normal color. Absent: rash Course Vital Signs 08/14/24 08/14/24 08/14/24 08:04 08:55 09:43 Temperature 98 F 98.2 F Pulse Rate 89 73 71 Respiratory 18 14 16 Rate Blood Pressure 118/79 112/63 101/54 O2 Sat by Pulse 98 97 100 Oximetry 08/14/24 08/14/24 08/14/24 10:15 11:10 12:20 Temperature 98.4 F 98.0 F Pulse Rate 63 74 80 Respiratory 14 16 14 Rate Blood Pressure 101/58 105/63 102/71 O2 Sat by Pulse 95 97 96 Oximetry Medical Decision Making - Medical Decision Making This is a 34-year-old female who presents to the emergency department for abdominal pain. Was pt. sent in by a medical professional or institution? @ -No Did you speak to anyone other than the patient for history? @ -No Did you review nursing and triage notes? @ -Yes, and I agree, it is accurate with regards to the patient's symptoms. Were old charts reviewed? @ -No Differential Diagnosis? @ -Differential Abdominal Pain Women: Appendicitis, Cholecystitis, diverticulosis, ischemic bowel, pancreatitis, hepatitis, UTI, gastroenteritis, AAA, incarcerated hernia, bowel obstruction, constipation, inflammatory bowel, hepatitis, peptic ulcer disease, splenic infarction, perforated viscus, vulvitis, ovarian torsion, PID, kidney stone, placenta abruption, this is not meant to be an all-inclusive list EKG interpreted by me (3pts min.)? @ -Not obtained X-rays interpreted by me (1pt min.)? @ -Not obtained CT interpreted by me (1pt min.)? @ -CT scan of the abdomen and pelvis obtained. My interpretation identifies wall thickening of the stomach. U/S interpreted by me (1pt. min.)? @ -Gallbladder ultrasound obtained. My interpretation identifies no evidence of cholelithiasis. What testing was considered but not performed? (CT, X-rays, U/S, labs)? Why? @ -None What meds were considered but not given? Why? @ -None Did you discuss the management of the patient with other professionals? @ -No Did you reconcile home meds? @ -No Was smoking cessation discussed for >3mins.? @ -No Was critical care preformed (if so, how long)? @ -No Were there social determinants of health that impacted care today? How? (Homelessness, low income, unemployed, alcoholism, drug addiction, transportation, low edu. Level, literacy, decrease access to med. care, correction, rehab)? @ -No Was there de-escalation of care discussed even if they declined? (Discuss DNR or withdrawal of care, Hospice)? @ -No What co-morbidities impacted this encounter? (DM, HTN, Smoking, COPD, CAD, Cancer, CVA, Hep., AIDS, mental health diagnosis, sleep apnea, morbid obesity)? @ -None Was patient admitted / discharged? @ -Discharged. Lab work unremarkable. Urinalysis negative for signs of infection. Gallbladder ultrasound was initially obtained revealing no acute process. Discussed further workup with the patient with a CT scan given that the cause of her pain is not entirely clear. Patient request to proceed. CT scan demonstrates a markedly thickened wall of the stomach antrum suggestive of gastritis. Findings reviewed with the patient. GI cocktail and Protonix administered in the emergency department. Rx for Pantoprazole, famotidine, and Levsin provided with dosing instructions reviewed. Advised follow-up with her PCP and GI. Patient discharged home in stable condition. Case discussed with ED attending Dr. Muhammad. Return precautions reviewed in depth, the patient is instructed to return to the emergency department with any new, worsening, or concerning symptoms. Patient verbalized understanding. Undiagnosed new problem with uncertain prognosis? @ -None Drug Therapy requiring intensive monitoring for toxicity (Heparin, Nitro, Insulin, Cardizem)? @ -None Were any procedures done? @ -None Diagnosis/symptom? @ -Acute gastritis Acute, or Chronic, or Acute on Chronic? @ -Acute Uncomplicated (without systemic symptoms) or Complicated (systemic symptoms)? @ -Uncomplicated Side effects of treatment? @ -None Exacerbation, Progression, or Severe Exacerbation] @ -Not applicable Poses a threat to life or bodily function? @ -No - Lab Data Result diagrams: 08/14/24 08:25 08/14/24 08:25 Lab Results 08/14/24 08/14/24 08/14/24 Range/Units 08:25 08:25 08:25 WBC 8.1 (3.8-10.6) k/uL RBC 4.34 (3.80-5.40) m/uL Hgb 13.5 (11.4-16.0) gm/dL Hct 40.6 (34.0-46.0) % MCV 93.6 (80.0-100.0) fL MCH 31.0 (25.0-35.0) pg MCHC 33.2 (31.0-37.0) g/dL RDW 12.6 (11.5-15.5) % Plt Count 276 (150-450) k/uL MPV 8.5 Neutrophils % 67 % Lymphocytes % 25 % Monocytes % 4 % Eosinophils % 2 % Basophils % 0 % Neutrophils # 5.5 (1.3-7.7) k/uL Lymphocytes # 2.0 (1.0-4.8) k/uL Monocytes # 0.3 (0-1.0) k/uL Eosinophils # 0.2 (0-0.7) k/uL Basophils # 0.0 (0-0.2) k/uL Sodium (137-145) mmol/L Potassium (3.5-5.1) mmol/L Chloride (98-107) mmol/L Carbon Dioxide (22-30) mmol/L Anion Gap mmol/L BUN (7-17) mg/dL Creatinine (0.52-1.04) mg/dL Est GFR (CKD-EPI)AfAm (>60 ml/min/1.73 sqM) Est GFR (CKD-EPI)NonAf (>60 ml/min/1.73 sqM) Glucose (74-99) mg/dL Plasma Lactic Acid Allen (0.7-2.0) mmol/L Calcium (8.4-10.2) mg/dL Total Bilirubin (0.2-1.3) mg/dL AST (14-36) U/L ALT (4-34) U/L Alkaline Phosphatase (38-126) U/L Total Protein (6.3-8.2) g/dL Albumin (3.5-5.0) g/dL Amylase (30-110) U/L Lipase (23-300) U/L Urine Color Light Yellow Urine Appearance Cloudy H (Clear) Urine pH 6.0 (5.0-8.0) Ur Specific [place] 1.023 (1.001-1.035) Urine Protein Negative (Negative) Urine Glucose (UA) Negative (Negative) Urine Ketones Negative (Negative) Urine Blood Small H (Negative) Urine Nitrite Negative (Negative) Urine Bilirubin Negative (Negative) Urine Urobilinogen <2.0 (<2.0) mg/dL Ur Leukocyte Esterase Small H (Negative) Urine RBC 1 (0-5) /hpf Urine WBC 8 H (0-5) /hpf Ur Squamous Epith Cells 8 H (0-4) /hpf Urine Mucus Rare H (None) /hpf Urine HCG, Qual Not Detected (Not Detectd) 08/14/24 08/14/24 Range/Units 08:25 08:40 WBC (3.8-10.6) k/uL RBC (3.80-5.40) m/uL Hgb (11.4-16.0) gm/dL Hct (34.0-46.0) % MCV (80.0-100.0) fL MCH (25.0-35.0) pg MCHC (31.0-37.0) g/dL RDW (11.5-15.5) % Plt Count (150-450) k/uL MPV Neutrophils % % Lymphocytes % % Monocytes % % Eosinophils % % Basophils % % Neutrophils # (1.3-7.7) k/uL Lymphocytes # (1.0-4.8) k/uL Monocytes # (0-1.0) k/uL Eosinophils # (0-0.7) k/uL Basophils # (0-0.2) k/uL Sodium 141 (137-145) mmol/L Potassium 4.8 (3.5-5.1) mmol/L Chloride 108 H (98-107) mmol/L Carbon Dioxide 25 (22-30) mmol/L Anion Gap 8 mmol/L BUN 18 H (7-17) mg/dL Creatinine 0.68 (0.52-1.04) mg/dL Est GFR (CKD-EPI)AfAm >90 (>60 ml/min/1.73 sqM) Est GFR (CKD-EPI)NonAf >90 (>60 ml/min/1.73 sqM) Glucose 95 (74-99) mg/dL Plasma Lactic Acid Allen 0.6 L (0.7-2.0) mmol/L Calcium 9.3 (8.4-10.2) mg/dL Total Bilirubin 1.1 (0.2-1.3) mg/dL AST 34 (14-36) U/L ALT 21 (4-34) U/L Alkaline Phosphatase 47 (38-126) U/L Total Protein 7.8 (6.3-8.2) g/dL Albumin 4.7 (3.5-5.0) g/dL Amylase 67 (30-110) U/L Lipase 68 (23-300) U/L Urine Color Urine Appearance (Clear) Urine pH (5.0-8.0) Ur Specific [place] (1.001-1.035) Urine Protein (Negative) Urine Glucose (UA) (Negative) Urine Ketones (Negative) Urine Blood (Negative) Urine Nitrite (Negative) Urine Bilirubin (Negative) Urine Urobilinogen (<2.0) mg/dL Ur Leukocyte Esterase (Negative) Urine RBC (0-5) /hpf Urine WBC (0-5) /hpf Ur Squamous Epith Cells (0-4) /hpf Urine Mucus (None) /hpf Urine HCG, Qual (Not Detectd) - Radiology Data Radiology results: report reviewed, image reviewed Disposition Clinical Impression: Gastritis Disposition: HOME SELF-CARE Instructions (If sedation given, give patient instructions): Gastritis (ED), Diet for Stomach Ulcers and Gastritis (ED) Additional Instructions: Return to the emergency department with any new, worsening, or concerning symptoms. Take the Protonix and famotidine daily over the next month. Try to take this 30 to 60 minutes before eating or taking other medication for the best effect. Take the Levsin every 4-6 hours for abdominal discomfort. You can also take Tylenol as needed for pain relief. Avoid anti-inflammatories like ibuprofen and naproxen for the meantime. Follow up with your primary care pro vider in 1-2 days. Prescriptions: Famotidine 40 mg PO DAILY 30 Days #30 tablet Hyoscyamine Sulfate [Levsin] 0.125 mg PO Q4-6H PRN #30 tab PRN Reason: Gi Upset Pantoprazole Sodium 40 mg PO DAILY 30 Days #30 tab Is patient prescribed a controlled substance at d/c from ED?: No Referrals: Naresh Fontana MD [Primary Care Provider] - 1-2 days Time of Disposition: 12:09
[2024-08-14] MEDS: SODIUM CHLORIDE 0.9% 1,000 ML IV STA (08:44)
[2024-08-14] MEDS: KETOROLAC 15 MG/ML 1 ML VIAL IVP STA (08:45)
[2024-08-14] MEDS: MAG HYDROX/AL HYDROX/SIMETH 30 ML, HYOSCYAMINE ELIXIR 10 ML PO STA (08:46)
[2024-08-14] MEDS: ONDANSETRON 4 MG/2 ML VIAL IVP STA (08:48)
[2024-08-14] MEDS: PANTOPRAZOLE 40 MG/10 ML VIAL IVP STA (08:50)
[2024-08-14 08:55] LABS: Basophils % (A) 0 %; Eosinophils # (A) 0.2 k/uL (0-0.7); Eosinophils % (A) 2 %; HCT 40.6 % (34.0-46.0); HGB 13.5 gm/dL (11.4-16.0); Lymphocytes % (A) 25 %; MCHC 33.2 g/dL (31.0-37.0); MCV 93.6 fL (80.0-100.0); Mean Platelet Volume 8.5; Monocytes # (A) 0.3 k/uL (0-1.0); Monocytes % (A) 4 %; Neutrophils # (A) 5.5 k/uL (1.3-7.7); Neutrophils % (A) 67 %; Platelet Count 276 k/uL (150-450); RBC 4.34 m/uL (3.80-5.40); RDW 12.6 % (11.5-15.5); WBC 8.1 k/uL (3.8-10.6)
[2024-08-14 09:09] LABS: Appearance,Urine Cloudy (Clear); Bilirubin,Urine Negative (Negative); Blood,Urine Small (Negative); Color,Urine Light Yellow; Glucose,Urine (UA) Negative (Negative); Ketones,Urine Negative (Negative); Leukocyte Esterase,Urine Small (Negative); Mucus,Urine Rare /hpf; Nitrite,Urine Negative (Negative); Protein,Urine Negative (Negative); RBC,Urine 1 /hpf (0-5); Specific Gravity,Urine 1.023 (1.001-1.035); Squamous Epithelial Cell,Urine 8 /hpf (0-4); Urobilinogen,Urine <2.0 mg/dL (<2.0); WBC,Urine 8 /hpf (0-5)
[2024-08-14 09:27] LABS: Anion Gap 8 mmol/L; Blood Urea Nitrogen 18 mg/dL (7-17); Carbon Dioxide 25 mmol/L (22-30); Chloride 108 mmol/L (98-107); Glucose 95 mg/dL (74-99); Sodium 141 mmol/L (137-145)
[2024-08-14 09:28] LABS: ALT 21 U/L (4-34); African American GFR (CKD) >90 (>60 ml/min/1.73 sqM); Albumin 4.7 g/dL (3.5-5.0); Amylase 67 U/L (30-110); Calcium 9.3 mg/dL (8.4-10.2); Lipase 68 U/L (23-300); Non-African American GFR(CKD) >90 (>60 ml/min/1.73 sqM); Total Bilirubin 1.1 mg/dL (0.2-1.3); Total Protein 7.8 g/dL (6.3-8.2)
[2024-08-14 09:39] LABS: AST 34 U/L (14-36); Potassium 4.8 mmol/L (3.5-5.1)
[2024-08-14 09:40] LABS: Alkaline Phosphatase 47 U/L (38-126)
--- NOTE | 2024-08-14 10:32 | US ---
EXAMINATION TYPE: US gallbladder DATE OF EXAM: 08/14/2024 COMPARISON: NONE CLINICAL INDICATION: Female, 34 years old with history of Epigastric pain; Epigastric pain, nausea fo r 3 days TECHNIQUE: Grayscale and color Doppler imaging of the right upper quadrant was performed. FINDINGS: EXAM MEASUREMENTS: Liver Length: 15.0 cm Gallbladder Wall: 0.3 cm CBD: 0.3 cm Right Kidney: 9.8 x 3.9 x 5.3 cm Pancreas: Tail obscured by overlying bowel gas Liver: wnl Gallbladder: no evidence of stones Evidence for sonographic Vazquez's sign: no CBD: wnl Right Kidney: dense echogenic focus upper pole = 0.4cm IMPRESSION: No evidence for acute process. [facility], , 08/14/2024 10:29 AM
--- NOTE | 2024-08-14 11:41 | CT ---
EXAMINATION TYPE: CT abdomen pelvis w con DATE OF EXAM: 08/14/2024 COMPARISON: 03/11/2022 CLINICAL INDICATION: Female, 34 years old with history of LUQ pain; [facility], Pain under Lt breast TECHNIQUE: Performed without Oral Contrast and with IV Contrast, patient injected with 100 mL of Isovue 300. CT DLP: 677.[address] CTDI: mGy Automated exposure control for dose reduction was used. FINDINGS: The lung bases are clear. This wall of the stomach antrum is markedly thickened and appears edematous raising the question of acute gastritis. There is no gastric outlet obstruction. The gallbladder is normal without distention, wall thickening, pericholecystic fluid or gallstones. T here is no biliary ductal dilatation. There is no focal mass or organomegaly involving the liver, pancreas, spleen or adrenal glands. There is no solid renal mass or hydronephrosis and there is homogeneous contrast enhancement of the r enal parenchyma. There is 1 to 2 mm nonobstructing left renal calcification. The caliber the abdominal aorta is normal is no retroperitoneal adenopathy or hemorrhage. The bowel loops are normal in caliber and there is no evidence of dilatation or obstruction. No infla mmatory changes are identified in the bowel wall or mesentery. Postsurgical changes in the right lowe r quadrant possibly related to appendectomy. There is no free intraperitoneal air or fluid. No pelvic mass, free fluid, abscess or adenopathy. The osseous structures and soft tissues are intact. IMPRESSION: Findings raise the question of acute gastritis and clinical correlation is recommended. [facility], , 08/14/2024 11:39 AM
[2024-08-14] MEDS: ONDANSETRON 4 MG ODT STARTER PACK 2 TAB BTL PO STA (12:14)
[2024-08-14] MEDS: ACET/COD 300 MG/30 MG STARTER PACK 6 TAB BTL PO STA (12:14)
[2024-08-14 12:21] VITALS: BP 102/71; PULSE 80; RESP 14; TEMP 98
== END 2024-08-14 12:21 | disposition home or self-care (01) ==
LOC: EC 08:00
DX: K29.70 Gastritis, unspecified, without bleeding (principal); Z88.8 Allergy status to other drugs, medicaments and biological substances; Z88.6 Allergy status to analgesic agent
CPT/HCPCS: 36415; 80053; 82150; 83605; 83690; 85025; 81001; 81025; 76705; 74177; 99284; 96374; 96375 ×2; 96361; J2405; J1885; S0119; Q9967; J2470

== ENCOUNTER → 2025-04-23 | Outpatient (CLI) | payer BC ==
--- NOTE | 2025-04-23 11:17 | MM ---
Reason for Exam: Screening (asymptomatic). Last mammogram was performed 1 year(s) and 6 month(s) ago. Patient History: Menarche at age 13. First Full-Term at age 23. Premenopausal. Hormonal Contraceptives, starting at age 17 for 2 years. Maternal cousin had breast cancer. Maternal aunt (great) had breast cancer. Risk Values: Raisa 5 year model risk: 0.2%. NCI Lifetime model risk: 8.4%. Prior Study Comparison: 10/03/2023 Bilateral MG 3D diag mammo w/cad [facility], [facility]. Tissue Density: The breasts are heterogeneously dense, which may obscure small masses. Findings: Analyzed By CAD. Right breast: There is no suspicious group of microcalcifications or new suspicious mass. Left breast: There is no suspicious group of microcalcifications or new suspicious mass. Overall Assessment: Negative, BI-RAD 1 Management: Screening Mammogram of both breasts in [address] [facility] will attempt to contact patient to return for supplemental views and ultrasound if indicated. Patient should continue monthly self-breast exams. A clinical breast exam by your physician is recommended on an annual basis. This exam should not preclude additional follow-up of suspicious palpable abnormalities. Note on Raisa scores and lifetime risk: 1. A Raisa score greater than 3% is considered moderate risk. If this is the case, consider specialist referral to assess eligibility for a risk reducing agent. 2. If overall lifetime risk for the development of breast cancer is 20% or higher, the patient may qualify for future screening with alternating mammogram and breast MRI. [facility], , 04/23/2025 11:13 AM. Electronically signed and approved by: Zak Mayberry DO
== END | disposition home or self-care (01) ==
LOC: RADMAMWWP 09:03
PROVIDERS: ATTEND Obstetrics & Gynecology
DX: Z12.31 Encounter for screening mammogram for malignant neoplasm of breast (principal); R92.333 Mammographic heterogeneous density, bilateral breasts; Z92.0 Personal history of contraception; Z80.3 Family history of malignant neoplasm of breast
CPT/HCPCS: 77063; 77067